=== PATIENT | male | born 1965 | race Caucasian/White ===

== ENCOUNTER 2020-06-17 07:57 | Outpatient (REF) | payer BC, SELFPAY | END 2020-06-17 07:58 | disposition home or self-care (01) | LOC: HO.LAB 07:57 | PROVIDERS: Visit Provider Internal Medicine | DX: Z20.828 Contact with and (suspected) exposure to other viral communicable diseases (principal) | CPT/HCPCS: C9803; U0003 ==

== ENCOUNTER 2020-08-07 08:52 | Outpatient (REF) | payer BC, SELFPAY ==
[2020-08-07 10:24] LABS: Hematocrit 49.1 % (42-52); Hemoglobin 16.2 g/dl (14.0-18.0); Mean Corpuscular Hemoglobin 29.7 pg (27.0-33.0); Mean Corpuscular Volume 90.1 fL (80-98); Mean Platelet Volume 10.7 fL (9.4-12.4); Platelet Count 189 X10*3/uL (160-400); Red Blood Count 5.45 X10*6/uL (4.60-5.80); Red Cell Distribution Width 11.9 % (11.0-16.0)
[2020-08-07 10:33] LABS: Estimated Average Glucose 140 mg/dL; Hemoglobin A1c % 6.5 %
[2020-08-07 10:45] LABS: Alanine Aminotransferase 81 U/L (0-40); Albumin Level 4.3 g/dL (3.5-5.0); Alkaline Phosphatase 63 U/L (39-117); Anion Gap 14 (12-20); Aspartate Amino Transferase 42 U/L (5-37); Bilirubin Total 0.5 mg/dL (0.0-1.0); Blood Urea Nitrogen 15 mg/dL (9-16); Calcium 8.9 mg/dL (8.4-10.2); Carbon Dioxide 25 mmol/L (22-29); Chloride 105 mmol/L (96-108); Cholesterol 132 mg/dL; Estimated Glomerular Filt Rate > 60; Glucose Fasting 101 mg/dL (60-99); HDL Cholesterol 31 mg/dL; LDL Cholesterol Calculated 66 mg/dl; Potassium 4.6 mmol/l (3.3-5.1); Sodium 139 mmol/L (135-145); Total Protein 6.9 g/dL (6.5-8.0); Triglycerides 176 mg/dL
[2020-08-07 10:53] LABS: Creatinine Urine 170.41 mg/dL; Microalbum/Creatinine Ratio Ur 2.9 ug/mg cr
[2020-08-07 11:20] LABS: TSH reflex Free T4 1.29 mIU/mL (0.32-4.0)
[2020-08-07 11:51] LABS: Prostate Specific Antigen Scr 0.59 ng/mL (<0.05-4.0)
== END 2020-08-07 08:53 | disposition home or self-care (01) ==
LOC: HO.LAB 08:52
PROVIDERS: PCP Internal Medicine; Visit Provider Internal Medicine
DX: I25.10 Atherosclerotic heart disease of native coronary artery without angina pectoris (principal); E11.9 Type 2 diabetes mellitus without complications; E78.5 Hyperlipidemia, unspecified; I10 Essential (primary) hypertension
CPT/HCPCS: 36415; 80053; 80061; 82043; 83036; 84153; 84443; 85027

== ENCOUNTER 2020-11-29 09:25 | Outpatient (REF) | payer BC, SELFPAY ==
[2020-11-29 11:48] LABS: Glucose Urine UA NEG (NEG); Leukocyte Esterase Urine NEG (NEG); Nitrite Urine NEG (NEG); PH 5.5 (5.0-8.0); Specific Gravity - Urine >= 1.030 (1.005-1.025); Urine Blood NEG (NEG); Urine Ketones NEG (NEG); Urine Protein NEG (NEG-TRACE)
[2020-11-29 11:49] LABS: Appearance Urine CLEAR; Color Urine YELLOW
[2020-11-29 11:58] LABS: RBC Urine 0 /HPF (0); Squamous Epithelial Cell Urine TRACE /LPF; WBC Urine 0 /HPF (0-4)
[2020-11-29 12:02] LABS: Alanine Aminotransferase 47 U/L (0-40); Albumin Level 4.4 g/dL (3.5-5.0); Alkaline Phosphatase 61 U/L (39-117); Anion Gap 16 (12-20); Aspartate Amino Transferase 30 U/L (5-37); Bilirubin Total 0.7 mg/dL (0.0-1.0); Blood Urea Nitrogen 18 mg/dL (9-16); Calcium 9.4 mg/dL (8.4-10.2); Carbon Dioxide 22 mmol/L (22-29); Chloride 107 mmol/L (96-108); Cholesterol 127 mg/dL; Estimated Glomerular Filt Rate > 60; Glucose Fasting 98 mg/dL (60-99); HDL Cholesterol 29 mg/dL; LDL Cholesterol Calculated 59 mg/dl; Lipase 15 U/L (8-78); Potassium 4.5 mmol/L (3.3-5.1); Sodium 140 mmol/L (135-145); Total Protein 6.9 g/dL (6.5-8.0); Triglycerides 199 mg/dL
[2020-11-29 12:26] LABS: Prostate Specific Antigen Scr 0.45 ng/mL (<0.05-4.0)
[2020-11-29 12:33] LABS: Estimated Average Glucose 134 mg/dL; Hemoglobin A1c % 6.3 %
[2020-11-29 12:34] LABS: Microalbum/Creatinine Ratio Ur 2.8 ug/mg cr
== END 2020-11-29 09:26 | disposition home or self-care (01) ==
LOC: HO.HMGCLDS 09:25
PROVIDERS: PCP Internal Medicine; Visit Provider Internal Medicine
DX: I10 Essential (primary) hypertension (principal); E11.9 Type 2 diabetes mellitus without complications; E78.5 Hyperlipidemia, unspecified; I25.10 Atherosclerotic heart disease of native coronary artery without angina pectoris; R10.9 Unspecified abdominal pain; Z12.5 Encounter for screening for malignant neoplasm of prostate
CPT/HCPCS: 36415; 80053; 80061; 81001; 82043; 83036; 83690; 84153

== ENCOUNTER 2020-12-06 12:54 | Outpatient (REF) | payer BC, SELFPAY ==
--- NOTE | ~2020-12-06 | CT_ITS ---
EXAMINATION: CT CHEST SCREENING CLINICAL INFORMATION: Nicotine dependence, cigarettes. COMPARISON: CT chest 09/22/2019. TECHNIQUE: Multidetector volumetric CT imaging of the chest is performed without contrast using low dose technique. Additional 2D coronal and sagittal reformatted images and axial 3D maximum intensity projection (MIP) images are generated on the CT workstation. This CT examination was performed using dose optimization techniques as appropriate, variously including the following: *Automated exposure control *Adjustment of mA and/or kV according to patient size (this includes techniques or standardized protocols for targeted exams where dose is matched to indication/reason for exam; i.e. extremities or head) *Use of iterative reconstruction technique DLP: 72 mGy-cm FINDINGS: LUNGS: The lungs are well expanded and clear of acute pneumonic consolidation. There is a 1 mm calcification in the right upper lobe (image 113/6), 1 mm noncalcified nodule in the right middle lobe (axial image 33/4). No additional lung nodules are seen. No focal atelectasis or ground-glass density is seen. MEDIASTINUM: The thyroid lobes are symmetrical and normal. The central trachea and the bronchi are widely patent. No abnormal-sized mediastinal or hilar lymph nodes are seen. There are coronary artery calcifications present. There is no pericardial effusion. Heart size and the great vessels are normal caliber. PLEURA: There is no pleural effusion. No pleural mass or thickening. AXILLAE: There are shotty bilateral axillary lymph nodes. UPPER ABDOMEN: Visualized liver, spleen, pancreas and bilateral adrenal glands are unremarkable. OSSEOUS STRUCTURES: There is moderate ventral spondylosis in the mid and lower dorsal spine. No lytic or sclerotic process is seen. CT/CT lung screening IMPRESSION: Punctate 1 mm calcified and noncalcified nodules in the right upper lobe and right middle lobe, respectively, retrospectively unchanged. They are insignificant. ASSESSMENT: Lung-RADS category 2: Benign RECOMMENDATION: Low-dose annual CT chest.
== END 2020-12-06 12:55 | disposition home or self-care (01) ==
LOC: HO.CT 12:54
PROVIDERS: PCP Internal Medicine; Visit Provider Surgery
DX: Z12.2 Encounter for screening for malignant neoplasm of respiratory organs (principal); F17.210 Nicotine dependence, cigarettes, uncomplicated
CPT/HCPCS: 71271

== ENCOUNTER 2020-12-14 08:20 | Outpatient (REF) | payer BC, SELFPAY ==
--- NOTE | ~2020-12-14 | CT_ITS ---
EXAMINATION: CT ABDOMEN WITH CONTRAST CLINICAL INFORMATION: Abdominal pain. COMPARISON: None TECHNIQUE: Contiguous axial thin section helical images of the abdomen were performed following the administration of oral contrast and 85 mL of Omnipaque 350 intravenous contrast. The data set was reformatted in the coronal and sagittal planes and reviewed on an independent workstation. This CT examination was performed using dose optimization techniques as appropriate, variously including the following: *Automated exposure control *Adjustment of mA and/or kV according to patient size (this includes techniques or standardized protocols for targeted exams where dose is matched to indication/reason for exam; i.e. extremities or head) *Use of iterative reconstruction technique DLP: 276 mGy-cm FINDINGS: LUNG BASES: Both lung bases are well expanded and clear. The heart size is normal. LIVER, GALLBLADDER, AND BILIARY TREE: The liver liver is normal size and contour. There is diffuse attenuation of liver without focal lesion. There is no intrahepatic ductal dilatation. PANCREAS: The pancreas is homogeneous in density and appears unremarkable. SPLEEN: The spleen is unremarkable. ADRENAL GLANDS AND KIDNEYS: Bilateral adrenal glands are unremarkable. Both kidneys are normal size, shape and position. No radiopaque renal calculi or hydronephrosis seen. BOWEL LOOPS: Scattered stool and gas seen throughout the colon without any distention. The small bowel loops are normal caliber. Appendix is not visualized images. There is no free air or free fluid. LYMPH NODES: Small shotty lymph nodes are seen in the retroperitoneum. VASCULAR: Unremarkable. BONES: No lytic or sclerotic process seen. CT/CT abdomen w con IMPRESSION: Diffuse fatty infiltration of liver without focal lesion. Mild constipation. No obstruction.
[2020-12-14] MEDS: iohexoL 350 MG/ML 100 ML INFUS..BTL IV (09:51)
[2020-12-14] MEDS: Barium Sulfate Oral (Vanilla) 450 ML ORAL.SUSP PO (09:54)
== END 2020-12-14 08:21 | disposition home or self-care (01) ==
LOC: HO.CT 08:20
PROVIDERS: PCP Internal Medicine; Visit Provider Internal Medicine
DX: R10.9 Unspecified abdominal pain (principal); K85.90 Acute pancreatitis without necrosis or infection, unspecified
CPT/HCPCS: 74160; Q9967

== ENCOUNTER 2022-02-18 06:39 | Outpatient (REF) | payer BC, SELFPAY ==
[2022-02-18 11:35] LABS: Estimated Average Glucose 131 mg/dL; Hemoglobin A1c % 6.2 %
[2022-02-18 11:52] LABS: Alanine Aminotransferase 46 U/L (0-40); Albumin Level 4.2 g/dL (3.5-5.0); Alkaline Phosphatase 78 U/L (39-117); Anion Gap 13 (12-20); Aspartate Amino Transferase 27 U/L (5-37); Bilirubin Total 0.4 mg/dL (0.0-1.0); Blood Urea Nitrogen 16 mg/dL (9-16); Calcium 8.5 mg/dL (8.4-10.2); Carbon Dioxide 24 mmol/L (22-29); Chloride 106 mmol/L (96-108); Cholesterol 257 mg/dL; Estimated Glomerular Filt Rate > 60; Glucose Fasting 107 mg/dL (60-99); HDL Cholesterol 34 mg/dL; LDL Cholesterol Calculated 171 mg/dl; Potassium 4.5 mmol/L (3.3-5.1); Sodium 138 mmol/L (135-145); Total Protein 6.8 g/dL (6.5-8.0); Triglycerides 263 mg/dL
[2022-02-18 11:55] LABS: TSH reflex Free T4 2.47 uIU/mL (0.32-4.0)
[2022-02-18 12:19] LABS: Creatinine Urine 149.45 mg/dL; Microalbumin Urine < 5.0 mg/L
== END 2022-02-18 06:40 | disposition home or self-care (01) ==
LOC: HO.HMGCLDS 06:39
PROVIDERS: Visit Provider Internal Medicine
DX: I25.10 Atherosclerotic heart disease of native coronary artery without angina pectoris (principal); I10 Essential (primary) hypertension; E78.5 Hyperlipidemia, unspecified; E11.9 Type 2 diabetes mellitus without complications
CPT/HCPCS: 36415; 80053; 80061; 82043; 83036; 84443

== ENCOUNTER 2022-09-13 08:02 | Outpatient (REF) | payer BC, SELFPAY ==
[2022-09-13 11:51] LABS: Basophils Percent Auto 0.6 % (0-2); Eosinophils Absolute Auto 0.3 X10*3/uL (0.0-0.4); Eosinophils Percent Auto 4.1 % (0-4); Hematocrit 47.3 % (42.0-52.0); Hemoglobin 15.5 g/dl (14.0-18.0); Imm Gran Abs Auto 0.01 X10*3/uL (0.00-0.03); Imm Gran Pct Auto 0.2 % (0.0-0.4); Lymphocytes Absolute Auto 2.8 X10*3/uL (1.2-4.9); Lymphocytes Percent Auto 42.5 % (20-40); MANUAL DIFF FLAG SCAN; Mean Corpuscular HGB Conc 32.8 g/dl (31.0-36.0); Mean Corpuscular Hemoglobin 29.6 pg (27.0-33.0); Mean Corpuscular Volume 90.4 fL (80.0-98.0); Mean Platelet Volume 11.5 fL (9.4-12.4); Monocytes Absolute Auto 0.6 X10*3/uL (0.1-1.2); Monocytes Percent Auto 8.4 % (2-11); Neutrophils Absolute Auto 2.9 x10*3/uL (2.0-8.3); Neutrophils Percent Auto 44.2 % (45-73); PLT CLUMP 1; Red Blood Count 5.23 X10*6/uL (4.60-5.80); Red Cell Distribution Width 12.5 % (11.0-16.0); SCAN SMEAR FLAG 1
[2022-09-13 11:52] LABS: Platelet Count 139 X10*3/uL (160-400); White Blood Count 6.6 X10*3/uL (4.8-10.8)
[2022-09-13 12:00] LABS: Estimated Average Glucose 154 mg/dL
[2022-09-13 12:15] LABS: SLIDE REVIEW VERIFIED
[2022-09-13 12:23] LABS: Creatinine Urine 186.26 mg/dL; Microalbum/Creatinine Ratio Ur 3.2 ug/mg cr
[2022-09-13 12:53] LABS: Alanine Aminotransferase 54 U/L (0-40); Albumin Level 3.9 g/dL (3.5-5.0); Alkaline Phosphatase 76 U/L (39-117); Anion Gap 16 (12-20); Aspartate Amino Transferase 34 U/L (5-37); Bilirubin Total 0.8 mg/dL (0.0-1.0); Blood Urea Nitrogen 16 mg/dL (9-16); Calcium 8.9 mg/dL (8.4-10.2); Carbon Dioxide 20 mmol/L (22-29); Chloride 108 mmol/L (96-108); Cholesterol 239 mg/dL; Estimated Glomerular Filt Rate > 60; Glucose Fasting 108 mg/dL (60-99); HDL Cholesterol 31 mg/dL; LDL Cholesterol Calculated 165 mg/dl; Potassium 4.8 mmol/L (3.3-5.1); Sodium 139 mmol/L (135-145); Total Protein 6.8 g/dL (6.5-8.0); Triglycerides 216 mg/dL
== END 2022-09-13 08:03 | disposition home or self-care (01) ==
LOC: HO.HMGCLDS 08:02
PROVIDERS: PCP Internal Medicine; Visit Provider Internal Medicine
DX: E78.5 Hyperlipidemia, unspecified (principal); I25.10 Atherosclerotic heart disease of native coronary artery without angina pectoris; E11.9 Type 2 diabetes mellitus without complications; I10 Essential (primary) hypertension
CPT/HCPCS: 36415; 80053; 80061; 82043; 83036; 85025

== ENCOUNTER 2024-10-09 07:23 | Outpatient (REF) | payer BC, SELFPAY ==
--- OUTSIDE RECORDS SUMMARY | 2024-10-09 07:26 | XMS_ITS | Encounter Summary ---
Author Organization [employer] Address [address] [facility] 7 [place] [address] Care Team Providers Care Communications Representative Name Role Phone Kenn Schaffer MD Primary Care Provider [phone] Encounter Details Date Type Department Care Team (Late st Contact Info) Description 01/31/[address] [phone] Kenn Schaffer MD [address] [place] [phone] Social History Tobacco Use Types Packs/Day Years Used Date Smoking Tobacco: Former Cigarettes Q uit: 2022 Smokeless Tobacco: Never Alcohol Answer Date Recorded How often do you have a drink containing alcohol ? 0 02/04/2024 How many drinks containing a lcohol do you have on a typical day when you are drinking? 0 02/04/2024 How often do you have six or more drinks on one occasion? 0 02/04/2024 Housing Stability Answer Date Recorded What is your housing situation today? I have jean-paul rebollar 09/17/[address] you li ve. Do you have problems with any of the following? None of the above 09/17/2023 Food Insecurity Answer Date Recorded Within the past 12 months, y ou worried that your food would run out before you got money to buy more: Never True 09/17/2023 Within the past 12 months,th e food you bought just didn't last and you didn't have enough money to get more: Never True Transportation Answer Date Recorded In the past 12 months, has l ack of transportation kept you from medical appts, meetings, work or from getting things needed for daily living? No 09/17/2023 Intimate Partner Violence Answer Date R ecorded Within the last year, have y ou been afraid of your partner or ex-partner? 2 02/04/2024 Within the last year, have y ou been humiliated or emotionally abused in other ways by your partner or ex-partner? 2 Within the last year, have y ou been kicked, hit, slapped, or otherwise physically hurt by your partner or ex-partner? 2 02/04/2024 Within the last year, have y ou been raped or forced to have any kind of sexual activity by your partner or ex-partner? 2 02/04/2024 Utilities Answer Date Recorded In the past 12 months, has t he electric, gas, oil or water company threatened to shut off services in your home? No 09/17/2023 Depression Answer Date Recorded Patient Health Questionnaire-2 Score 0 09/17/2023 Sex and Gender Information Value Date Recorded Sex Assigned at Male 08/06/2023 10:53 AM EST Legal Sex Male 10:51 AM EST Gender Identity Male 09/17/2023 10:26 AM EST Sexual Orientation Don't know 09/17/2023 10 :26 AM EST documented as of this encounter Miscellaneous Notes * Telephone Encounter - Logan Temple - 01/31/2024 9:32 AM EDT Patient's daughter informs her father was supposed to have his A1C and cholesterol checked before his appointment on 02/03 but there aren't any orders for labs in his mychart. She's requesting we orderthose labs so he can have them done before the appointment. Her call back number is [phone] documented in this encounter Plan of Treatment Upcoming Encounters Date Type Department Care Team (Late st Contact Info) Description 10/11/2024 9:20 AM EDT Office Visit [facility] [address] [place] [phone] Kenn Schaffer MD [address] [place] [phone] documented as of this encounter Visit Diagnoses Not on filedocumented in this encounter Care Teams Communications Representative Relationship Specialty Start Date End Date Kenn Schaffer MD [address] [place] [phone] PCP - General Internal Medicine 09/25/23 documented as of this encounter
--- OUTSIDE RECORDS SUMMARY | 2024-10-09 07:26 | XMS_ITS | Encounter Summary ---
Author Organization [facility] Address [address] [place] [address] Care Team Providers Care Cheese Sprayer Name Role Phone Unknown Primary Care Provider [phone] Encounter Details Date Type Department Care Team (Late st Contact Info) Description 07/17/2023 4:19 PM EST Hospital Encounter [facility] [address] [place] [phone] Harjinder Galvin MD [address] [place] [address] Social History Tobacco Use Types Packs/Day Years Used Date Smoking Tobacco: Never Assessed Sex and Gender Information Value Date Recorded Sex Assigned at Not on file Gender Identity Not on file Sexual Orientation [...] IMPRESSION: Impression: No acute pulmonary disease. Daniel [facility] ORDERABLES documented in this encounter Visit Diagnoses Not on filedocumented in this encounter Care Teams Cheese Sprayer Relationship Specialty Start Date End Date Unknown Unknow Provider Address PCP - General 08/04/22 10/01/23 documented as of this encounter
--- OUTSIDE RECORDS SUMMARY | 2024-10-09 07:26 | XMS_ITS | Patient Health Record ---
Author Organization [facility] Address [address] [place] [address] Care Team Providers Care Prop Drawer Name Role Phone Elise Hidalgo MD Primary Care Provider Camilo Sears [phone] Allergies Allergen (clinical drug ingredient) Drug/Non Drug Allergy documented on EMR Reaction Allergy Type Onset Date Status Penicillin Unknown Drug Allergy Active bee stings (uncoded) Unknown Allergy Active Reason For Referral No Information Medications Medication SIG (Take, Route, Frequency, Duration) Notes Start Date End Date Status Aspir-81 81 MG 1 tablet Orally Once a day 07/21/2014 Unknown Lipitor 80 MG 1 tablet Orally Once a day 07/21/2014 Unknown Effient 5 MG as directed Orally Active Metoprolol Succinate ER 25 MG 1 tablet Orally Once a day 07/21/2014 Unknown Lisinopril 2.5 MG 1 tablet Orally Once a day 07/21/2014 Unknown Immunizations Vaccine Route Administration Date Status Comme nts Influenza Unknown 05/09/2020 Administered Problems Problem Type SNOMED Code ICD Code Onset Dates Problem Status W/U Status Risk Notes Problem [id number] RUQ abdominal pain (R10.11) Active confirmed Plan Of Treatment Future Test Test Name Order Date UPPER GI ENDOSCOPY 07/21/2014 COLONOSCOPY 07/21/2014 Insurance Providers Payer Name Payer Address Payer Phone Subscriber Number Group Number Insured Name Patient Relationship to Insured Coverage Start Date Coverage End Date [facility] [address] [place], [place] [id number] HALEY Self - patient is the insured Medical (General) History Medical History History ICD Code Denies CVA,Lung disease,renal disease Hypertension CAD--[place] 2004--[address], and [place] in 2010--neg cath.--sees Dr. Pedroza; 2 stents placed in 2020. Hyperlipidemia Positive H.pylori serology i n 07/2014--CT scan of the abdomen in July 2014 describes some possible thickening of the left colon wall, but this was not definitive--there was some diverticulosis, but no diverticulitis Negative colonoscopy in 2014 EGD in 2014--small HH, + H. pylori, no e sophagitis nor Velez's esophagus, Diet-controlled DM Surgical History Surgery Date(Month/Year)
--- OUTSIDE RECORDS SUMMARY | 2024-10-09 07:26 | XMS_ITS | Encounter Summary ---
Author Organization [facility] Address [id number] [place] [phone] Care Team Providers Care Administrative Assistant Front Desk Name Role Phone Elise Hidalgo MD Primary Care Provider [phone] Encounter Details Date Type Department Care Team (Late st Contact Info) Description 05/12/2024 4:25 PM EDT Hospital Encounter TH HISTORIC ENCOUNTERS EASTERN CONVERSION ONLY Gavino Moreau MD [address] [place] [address] Social History Tobacco Use Types Packs/Day Years Used Date Smoking Tobacco: Every Day Smokeless Tobacco: Never Alcohol Use Standard Drinks/Week [...] 4:54 PM Encounter Date: 05/12/2024 Status: Signed Circle Shear Operator: Gavino Moreau MD (Physician) Cardiology Attending Follow up Outpatient Note- Gavino Moreau M.D. [facility] Patient Name:Stephen Etienne Patient :1965 Referring MD:Elise Hidalgo MD Chief Complaint: CAD HPI: The patient is a 59 y.o. male with a history of smoking, ALEXANDER, diabetes, hypertension, hyperlipidemia and CAD status post DC and PCI (2015, 2019) who presents for [...] SNOMED CT(R) ? Coronary artery disease involving apache coronary artery of apache heart without angina pectoris CORONARY ARTERIOSCLEROSIS ? Essential hypertension ESSENTIAL HYPERTENSION ? Mixed hyperlipidemia MIXED HYPERLIPIDEMIA ? Old DC (myocardial infarction) OLD MYOCARDIAL INFARCTION ? ALEXANDER [...] HEART CATHETERIZATION; Surgeon: Alfredo Josue DO; Location: [facility] CARDIAC WEB CONTENT WRITER; Service: Cardiology; Laterality: N/A; ? CARDIAC CATHETERIZATION N/A 07/14/2020 Procedure: CARDIAC CATHETERIZATION; Surgeon: Alfredo Josue DO; Location: [facility] CARDIAC WEB CONTENT WRITER;Service: Cardiology; Laterality: N/A; ? CARDIAC CATHETERIZATION N/A 07/14/2020 Procedure: CORONARY ANGIOGRAPHY; Surgeon: Alfredo Josue DO; Location: [facility] CARDIAC WEB CONTENT WRITER; Service: Cardiology; Laterality: N/A; ? COLONOSCOPY Social [...] changes. Assessment and Plan: 1) CAD s/p DC and PCI (2015, 2019): He had 2 [...] for this visit: Coronary artery disease involving apache coronary artery of apache heart without angina pectoris - ECG 12 lead Essential hypertension Mixed hyperlipidemia Smoking Type 2 diabetes mellitus without complication, without long-term current use of insulin (HCC) Return in about 1 year (around 05/12/2025), or if symptoms worsen or fail to improve. Gavino Moreau MD, [facility], [facility] Cardiologists, [facility] 05/12/2024 10:30 AM documented in this encounter Plan of Treatment Upcoming Encounters Date Type Department Care Team (Late st Contact Info) Description 05/18/2025 4:30 PM EDT Office Visit [facility] - [place] [address] [place] [phone] Gavino Moreau MD [address] [facility] [address] [place] [address] documented as of this encounter Procedures Procedure Name Priority Date/Time Associated Diagnosis Comments ECG 05/12/2024 documented in this encounter Results * ECG (05/12/2024) us Provider Onbase CV HISTORICAL CONV PROCEDURES Final Result documented in this encounter Visit Diagnoses Not on filedocumented in this encounter Care Teams Administrative Assistant Front Desk Relationship Specialty Start Date End Date Elise Hidalgo MD PCP - General 06/07/20 documented as of this encounter
--- OUTSIDE RECORDS SUMMARY | 2024-10-09 07:26 | XMS_ITS | Encounter Summary ---
Author Organization [employer] Address [address] [facility] 7 [address] [place] [address] Care Team Providers Care Utilization Management Manager Name Role Phone Kenn Schaffer MD Primary Care Provider + [phone] Encounter Details Date Type Department Care Team (Late st Contact Info) Description 10/21/[address] [phone] Kenn Schaffer MD [address] [place] [address] Social History Tobacco Use Types Packs/Day Years Used Date Smoking Tobacco: Former Cigarettes Q uit: 2022 Smokeless Tobacco: Never Housing Stability Answer Date Recorded What is [...] things needed for daily living? No 09/17/2023 Utilities Answer Date Recorded In the past [...] encounter Miscellaneous Notes * Telephone Encounter - Latrice Hill - 10/22/2023 8:36 AM EDT Working on PA with Provider. * Telephone Encounter - Logan Temple - 10/21/2023 3:46 PM EDT Pharmacy informs they need a prior auth on the alirocumab (Praluent) 75 MG/ML injection documented in this encounter Plan of Treatment Upcoming Encounters Date Type Department Care Team (Late st Contact Info) Description 10/11/2024 9:20 AM EDT Office Visit [facility] [address] [place] [phone] Kenn Schaffer MD [address] [place] [address] documented as of this encounter Visit Diagnoses Not on filedocumented in this encounter Care Teams Utilization Management Manager Relationship Specialty Start Date End Date Kenn Schaffer MD [address] [place] [id number] PCP - General Internal Medicine 09/25/23 documented as of this encounter
--- OUTSIDE RECORDS SUMMARY | 2024-10-09 07:26 | XMS_ITS | Encounter Summary ---
Author Organization [employer] Address [address] [facility] 7t [place] [address] Care Team Providers Care Billet Heater Name Role Phone Kenn Schaffer MD Primary Care Provider + [phone] Encounter Details Date Type Department Care Team (Late st Contact Info) Description 01/28/2024 Orders Only [place] [facility] [address] [place], [place] [id number] Provider, Not In System Social History Tobacco Use Types Packs/Day Years Used Date Smoking Tobacco: Former Cigarettes Q uit: 2022 Smokeless Tobacco: Never Housing Stability Answer Date Recorded What is your housing situation today? I have jean-paul keturah 09/17/[address] you li [...] AM EST documented as of this encounter Plan of Treatment Upcoming Encounters Date Type Department Care Team (Late st Contact Info) Description 10/11/2024 9:20 AM EDT Office Visit [facility] [address] [place] [phone] Kenn Schaffer MD [address] [place] [address] documented as of this encounter Procedures Procedure Name Priority Date/Time Associated Diagnosis Comments COLONOSCOPY Routine 08/29/2014 3:13 PM EST documented in this encounter Results * Hm Colonoscopy (08/29/2014 3:13 PM EST) us Not In System Provider HEALTH MAINTENANCE Edited Result - Final documented in this encounter Visit Diagnoses Not on filedocumented in this encounter Care Teams Billet Heater Relationship Specialty Start Date End Date Kenn Schaffer MD [address] [place] [id number] PCP - General Internal Medicine 09/25/23 documented as of this encounter
--- OUTSIDE RECORDS SUMMARY | 2024-10-09 07:26 | XMS_ITS | Clinical Summary ---
Author Organization [facility] Address [address] [place] [phone] Care Team Providers Care Wire Products Inspector Name Role Phone Elise Hidalgo MD Primary Care Provider [phone] Surgical History Surgery Date Site/Laterality Comments COLONOSCOPY PROCEDURE:COLONOSCOPY CARDIAC CATHETERIZATION PROCEDURE:CARDIAC CATHETERIZATION CARDIAC CATHETERIZATION 07/14/2020 N/A PROCEDURE:CARDIAC CATHETERIZATION;COMMENT:Procedure: LEFT HEART CATHETERIZATION; Surgeon: Alfredo Josue DO; Location: [facility]; Service: Cardiology; Laterality: N/A; CARDIAC CATHETERIZATION 07/14/2020 N/A PROCEDURE:CARDIAC CATHETERIZATION;COMMENT:Procedure: CARDIAC CATHETERIZATION; Surgeon: Alfredo Josue DO; Location: [facility]; Service: Cardiology; Laterality: N/A; CARDIAC CATHETERIZATION 07/14/2020 N/A PROCEDURE:CARDIAC CATHETERIZATION;COMMENT:Procedure: CORONARY ANGIOGRAPHY; Surgeon: Alfredo Josue DO; Location: [facility]; Service: Cardiology; Laterality: N/A; Medical History Medical History Date Comments Coronary artery disease DX:Coron andres artery disease Hyperlipidemia DX:Hyperlipidemi a Myocardial infarction ([facility]/HCC) DX:Myocardial infarction (HCC) Hypertension DX:Hypertension Sleep apnea DX:Sleep apnea Kidney stone DX:Kidney stone Family History Medical History Relation Name Comments Hypertension Brother Kidney disease Father Heart attack Mother Heart disease Mother Hypertension Mother Hypertension Sister Relation Name Status Comments Brother Father Mother Sister Social History Tobacco Use Types Packs/Day Years Used Date Smoking Tobacco: Every Day Smokeless Tobacco: Never Alcohol Use Standard Drinks/Week Comments No 0 (1 standard drink = 0.6 oz pur e alcohol) Sex and Gender Information Value Date Recorded Sex Assigned at Not on file Legal Sex Male 7:48 AM EST Gender Identity Not on file Sexual Orientation Not on file Obstetrics History Last Filed Vital Signs Vital Sign Reading [...] Mass Index 37.76 05/12/2024 4:33 PM EDT Plan of Treatment Upcoming Encounters Date Type Department Care Team ([facility] st Contact Info) Description 05/18/2025 4:30 PM EDT Office Visit [facility] [place] [facility] [place] [address] [facility] [address] [place] [address] Gavino Moreau MD 19 [facility] 35 [place], [place] [id number] Health Maintenance Due Date Last Done Comments Diabetes: Annual GFR (Glomer ular Filtration Rate) 1965 Diabetes: Annual Foot Exam 01/26/1974 Diabetes: Annual Retina Eye Exam 01/26/1974 Pneumococcal Vaccine: 50+ Ye ars (1 of 2 - PCV) 01/26/1983 Pneumococcal Vaccine: Pediat rics (0 to 5 Years) and At-Risk Patients (6 to 64 Years) (1 of 2 - PCV) 01/26/1983 Zoster Vaccines (1 of 2) 01/26/2014 DTaP,Tdap,and Td Vaccines (2 - Td or Tdap) 01/23/2021 01/23/2011 Cholesterol Screening (Lipid Panel) 07/07/2022 Colorectal Cancer Screening: Colonoscopy 07/07/2022 Depression Screening 07/07/2022 HIV Screening 07/07/2022 Hepatitis C Screening 07/07/2022 Social Influencers of Health Screening 07/07/2022 Hypertension/CHF/CAD Annual BMP Blood Test 07/13/2022 COVID-19 Vaccine (1 - 2023-2 5 season) 2024 Influenza Vaccine (#1) 2024 Diabetes: Annual Urine Albumin-Creatinine Ratio (uACR) 05/19/2024 Diabetes: Blood Sugar Contro l Test (HGBA1C) 05/19/2024 RSV Immunization Patients 60 + Years Old (1 - 1-dose 75+ series) 01/26/2039 HIB Vaccines Aged Out No longer eligi ble based on patient's age to complete this topic HPV Vaccines Aged Out No longer eligi ble based on patient's age to complete this topic Hepatitis A Vaccines Aged Out No long er eligible based on patient's age to complete this topic Hepatitis B Vaccines Aged Out No long er eligible based on patient's age to complete this topic IPV Vaccines Aged Out No longer eligi ble based on patient's age to complete this topic MMR Vaccines Aged Out No longer eligi ble based on patient's age to complete this topic Meningococcal ACWY Vaccine Aged Out N o longer eligible based on patient's age to complete this topic Meningococcal B Vacine Aged Out No lo nger eligible based on patient's age to complete this topic RSV Immunization Patients Un floyd 20 months Aged Out No longer eligible b ased on patient's age to complete this topic Varicella Vaccines Aged Out No longer eligible based on patient's age to complete this topic Medical Devices Implanted Type Area Sugar Grinder Device Identifier Shelf Expiration Date Model / Serial / Lot Stent Resolute [place] 18mm 2.75mm Rapdx Zotarolimus Eluting - [id number] Implanted: 020 (Quantity not on file) [employer] [id number] X / / Stent Resolute [place] 22mm 3.5mm Rapdx Zotarolimus Eluting - [id number] Implanted: 020 (Quantity not on file) [employer] V[employer] [id number] X / / Care Teams Wire Products Inspector Relationship Specialty Start Date End Date Elise Hidalgo MD PCP - General 06/07/20
--- OUTSIDE RECORDS SUMMARY | 2024-10-09 07:26 | XMS_ITS | Encounter Summary ---
Author Organization [employer] Address [address] [facility] 7 [place] [address] Care Team Providers Care Processing Technician Name Role Phone Kenn Schaffer MD Primary Care Provider + [phone] Encounter Details Date Type Department Care Team (Late st Contact Info) Description 10/16/[address] [phone] Kenn Schaffer MD [address] [place] [phone] Social History Tobacco Use Types Packs/Day Years [...] * Telephone Encounter - Logan Temple - 10/16/2023 9:07 AM EDT Pharmacy informs they will need a prior auth on the alirocumab (Praluent) 75 MG/ML injection documented in this encounter Plan of Treatment Upcoming Encounters Date Type Department Care Team (Late st Contact Info) Description 10/11/2024 9:20 AM EDT Office [facility] [place] [place] [facility] [address] [place] [phone] Kenn Schaffer MD [address] [place] [address] documented as of this encounter Visit Diagnoses Not on filedocumented in this encounter Care Teams Processing Technician Relationship Specialty Start Date End Date Kenn Schaffer MD [address] [place] [id number] PCP - General Internal Medicine 09/25/23 documented as of this encounter
--- OUTSIDE RECORDS SUMMARY | 2024-10-09 07:26 | XMS_ITS | Clinical Summary ---
Author Organization [facility] Address [address] [place] [address] Care Team Providers Care Telephone Service Adviser Name Role Phone Elise Hidalgo MD Primary Care Provider [phone] Allergies Active Allergy Reactions Criticality Noted Date Comments Bee Sting Anaphylaxis High 06/07/2020 Penicillins Hives 06/07/2020 Medications Medication Sig Dispensed Refills Start Date End Date Status lisinopril (PRINIVIL,ZESTRIL) tablet 20 mg Take 1 tablet (20 mg total) by mouth daily. 0 Active metoprolol succinate (TOPROL-XL) 24 hr tablet 25 mg Take 1 tablet (25 mg total) by mouth daily. 0 Active rosuvastatin (CRESTOR) tablet 40 mg Take 1 tablet (40 mg total) by mouth daily. 0 Active ezetimibe (ZETIA) tablet 10 mg Take 1 tablet (10 mg total) by mouth daily. 0 Active aspirin 81 MG EC tablet Take 1 tablet (81 mg total) by mouth daily. 0 Active metFORMIN (GLUCOPHAGE) tablet 500 mg Take 1 tablet (500 mg total) by mouth 2 (two) times a day with meals. 0 Active Active Problems Problem Noted Date Diagnosed Date Type 2 diabetes mellitus without complication Coronary artery disease invo lving [place] coronary artery of [place] heart without angina pectoris 06/07/2020 Essential hypertension 06/07/2020 Mixed hyperlipidemia 06/07/2020 Old [place] (myocardial infarction) 06/07/2020 ALEXANDER (obstructive sleep apnea) 06/07/2020 Family History Medical History Relation Name Comments Hypertension Brother Kidney disease Father Heart attack Mother Heart disease Mother Hypertension Mother Hypertension Sister Relation Name Status Comments Brother Father Mother Sister Social History Tobacco Use Types Packs/Day Years Used Date Smoking Tobacco: Every Day Cigarettes Passive Smoke Exposure: Current Smokeless Tobacco: Never Tobacco Cessation:Ready to Q uit: Not Asked; Counseling Given: Not Answered Alcohol Use Standard Drinks/Week Comments No 0 (1 standard drink = 0.6 oz pur e alcohol) Sex and Gender Information Value Date Recorded Sex Assigned at Male 07/03/2020 3:00 PM EST Gender Identity Not on file Sexual Orientation Not on file Job Start Date Occupation Industry Not on file Not on file Not on file Last Filed Vital Signs Vital Sign Reading Time Taken Comments Blood Pressure 118/70 05/12/2024 4:33 PM EDT Pulse 75 05/12/2024 4:33 PM EDT Temperature 36.3 ??C (97.4 ??F) 07/26/2021 9:12 AM ES T Respiratory Rate 17 07/14/2020 3:45 PM EST Oxygen Saturation 96% 05/12/2024 4:33 PM EDT Inhaled Oxygen Concentration - - Weight 99.8 kg (220 lb) 05/12/2024 4:33 PM EDT Height 162.6 cm (5' 4 ) 05/12/2024 4:33 PM EDT Body Mass Index 37.76 05/12/2024 4:33 PM EDT Plan of Treatment Health Maintenance Due Date Last Done Comments Hepatitis C Screening 1965 COVID-19 Vaccine (#1) 1965 Depression Screening 1976 BMI Counseling 01/26/1982 Preventative Health Evaluation 01/26/1982 Tobacco Cessation Counseling 01/26/1982 Colon Cancer Screening (Colonoscopy) 01/26/2009 Shingrix-Zoster Vaccine (1 o f 2) 01/26/2014 DTap / Tdap / Td (2 - Td or Tdap) 01/23/2021 01/23/2011 Influenza Vaccine (#1) 2024 05/09/2020 RSV Adult > 60+ Yrs or (1 - 1-dose 75+ series) 01/26/2039 Pneumococcal Vaccine Completed 09/17/2023, 02/03/2016 Hepatitis B Vaccines Aged Out No long er eligible based on patient's age to complete this topic RSV Ped < 20 months Aged Out No longe r eligible based on patient's age to complete this topic Medical Devices Implanted Type Area Farmworker Field Crop Device Identifier Shelf Expiration Date Model / Serial / Lot Stent Resolute [place] 18mm 2.75mm Rapdx Zotarolimus Eluting - [id number] - [id number] Implanted:12/11/2 020 [place] [facility] [place] [facility] [place]Quantity not on file) [employer] - VASCULAR [id number] X / / Stent Resolute [place] 22mm 3.5mm Rapdx Zotarolimus Eluting - [id number] - [id number] Implanted: 020 [place] [facility] [place] [facility] [place]Quantity not on file) [employer] - VASCULAR [id number] X / / Advance Directives For more information, please contact: [phone] Latest Code Status on File Code Status Date Activated Date Inactivated Comments Full Code 07/14/2020 12:22 PM 07/14/2020 11:28 PM T his code status was ascertained in the following way: discussion with patient . Care Teams Telephone Service Adviser Relationship Specialty Start Date End Date Elise Hidalgo MD [address] [place] [address] PCP - General Sampler Ovens 06/07/20
--- OUTSIDE RECORDS SUMMARY | 2024-10-09 07:26 | XMS_ITS | Clinical Summary ---
Author Organization [employer] Address [address] [facility] 7t [place] [address] Care Team Providers Care Cigar Packer And Grader Name Role Phone Kenn Schaffer MD Primary Care Provider Allergies Active Allergy Reactions Criticality Noted Date Comments Bee Venom Anaphylaxis High 09/17/2023 Penicillins Swelling,Hives,Unknown Medium 06/07/2020 Medications EPINEPHrine (Epipen) 0.3 MG/0.3ML injection syringe Inject 0.3 mL (0.3 mg) as directed 1 (one) time for 1 dose. use as directed for allergic reaction and then call 911 0.3 mL 4 Active alirocumab (Praluent) 75 MG/ML injectionIndicat ions:Hypercholes teremia Inject 1 mL (75 mg) under the skin every 14 (fourteen) days. 2.24 mL 3 4 10/15/19 25 Active nitroglycerin (Nitrostat) 0.[address] 0.4 mg under the tongue. 6 Active albuterol 108 (90 Base) MCG/ACT inhaler Inhale 2 puffs every 6 (six) hours if needed. 3 Active famotidine (Pepcid) 40 MG tablet Take 40 mg by mouth. 6 Active ASPIRIN 81 MG chewable tablet Rx 81 mg po every day; 1 tablet 4 Active atorvastatin (Lipitor) 80 MG tablet Take 1 tablet (80 mg) by mouth in the morning. 90 tablet 3 4 Active ezetimibe (Zetia) 10 MG tablet Take 1 tablet (10 mg) by mouth in the morning. 90 tablet 3 4 Active metFORMIN XR (Glucophage-XR) 750 MG 24 hr tablet Take 1 tablet (750 mg) by mouth 2 times daily. 180 tablet 3 4 Active evolocumab (Repatha) 140 MG/ML injection Inject 1 mL (140 mg) under the skin every 14 (fourteen) days. 2.1 mL 3 4 Active metoprolol succinate XL (Toprol-XL) 25 MG 24 hr tablet TAKE 1 TABLET(25 MG) BY MOUTH IN THE MORNING 90 tablet 3 4 Active lisinopril 40 MG tabletIndication s:Hypertension, unspecified type Take 1 tablet (40 mg) by mouth Once per day. 30 tablet 11 4 02/04/20 25 Active amLODIPine (Norvasc) 2.5 MG tabletIndication s:Hypertension, unspecified type Take 2 tablets (5 mg) by mouth Once per day. 60 tablet 11 4 05/10/20 25 Active Immunizations Name Administration Dates Next Due Pneumococcal Conjugate PCV 09/17/2023 Social History Tobacco Use Types Packs/Day Years Used Date Smoking Tobacco: Former Cigarettes Q uit: 2022 Smokeless Tobacco: Never Tobacco Cessation:Counseling Given: Not Answered Alcohol Answer Date Recorded How often do [...] Don't know 09/17/2023 10 :26 AM EST Last Filed Vital Signs Vital Sign Reading Time Taken Comments Blood Pressure 123/83 05/10/2024 4:28 PM EDT Pulse 82 05/10/2024 4:28 PM EDT Temperature 36.6 ??C (97.8 ??F) 05/10/2024 4:28 PM ED T Respiratory Rate - - Oxygen Saturation 95% 05/10/2024 4:28 PM EDT Inhaled Oxygen Concentration - - Weight 101 kg (223 lb) 05/10/2024 4:28 PM EDT Height 162.6 cm (5' 4 ) 09/17/2023 2:06 PM EST Body Mass Index 38.28 09/17/2023 2:06 PM EST Plan of Treatment Upcoming Encounters Date Type Department Care Team (Late st Contact Info) Description 10/11/2024 9:20 AM EDT Office Visit [facility] [address] [place] [phone] Kenn Schaffer MD [address] [place] [id number] Health Maintenance Due Date Last Done Comments CT Colonography 1964 FIT DNA/Cologuard 1964 FIT 1964 FOBT 1965 HIV Screening 1964 Sigmoidoscopy 1964 Diabetes: Foot Exam 01/26/1974 Eye Exam 01/26/1974 Hepatitis C Screening 01/26/1982 Zoster Vaccines (1 of 2) 01/26/2014 RSV Patients and Patients Aged 60 years or older (1 - Risk 60-74 years 1-dose series) 2024 COVID-19 Vaccine ( - 2023-2 5 season) 2024 07/13/2021, 12/05/2020, 11/14/2020 Influenza Vaccine (#1) 2024 05/09/2020 Diabetes: Hemoglobin A1C 04/12/2024 10/11/2023 Colonoscopy 08/29/2024 08/29/2014 Colorectal Cancer Screening 08/29/2024 Depression Screening 09/17/2024 09/17/2023, 09/17/2023 SDOH Screening 09/17/2024 09/17/2023 Diabetes: Urine Protein Screening 01/30/2025 01/31/2024, 10/11/2023 Lipid Panel 01/30/2025 01/31/2024, 10/11/2023 DTaP/Tdap/Td Vaccines (3 - T d or Tdap) 02/01/2025 02/01/2015, 01/23/2011 Alcohol/Substance Use Screening 02/03/2025 02/04/2024 Tobacco Screening 05/10/2025 05/10/2024 Pneumococcal Vaccine: 50+ Years Completed 09/17/2023, 02/03/2016 HIB Vaccines Aged Out No longer eligi [...] patient's age to complete this topic Meningococcal Vaccine Aged Out No ras bonnie eligible based on patient's age to complete this topic RSV under 20 months Aged Out No longe r eligible based on patient's age to complete this topic Rotavirus Vaccines Aged Out No longer eligible based on patient's age to complete this topic Procedures Procedure Name Priority Date/Time Associated Diagnosis Comments ALBUMIN, RANDOM URINE W/CREATININE Routine 01/31/2024 9:35 AM EDT Diabetes mellitus type 2 in obese LIPID PANEL WITH REFLEX TO DIRECT LDL Routine 01/31/2024 9:35 AM EDT Diabetes mellitus type 2 in obese HEMOGLOBIN A1C Routine 10/11/2023 7:52 AM EST Diabetes mellitus type 2 in obese (CMS/HCC) HM COLONOSCOPY Routine 08/29/2014 3:13 PM EST from Last 3 Months or Most Recently Relevant to Health Maintenance Results * (ABNORMAL) Lipid Panel with Reflex to Direct LDL (01/31/2024 9:35 AM EDT) Cholesterol, Total 126 <200 mg/dL [employer] HDL Cholesterol 33(L) > OR = 40 mg/dL [employer] Triglycerides 106 <150 mg/dL [employer] LDL Cholesterol 74 mg/dL [facility] Comment: Reference range: <100 Desirable range <100 mg/dL for primary prevention; ?? <70 mg/dL for patients with CHD or diabetic patients with > or = 2 CHD risk factors. LDL-C is now calculated using the Brittnee calculation, which is a validated novel method providing better accuracy than the Friedewald equation in the estimation of LDL-C. Dayo BINGHAM et al. SUSANA. 2013;310(19): 8345-3110 (http://education.Mixpo.[employer]/faq/MPJ718) Chol/HDLC Ratio 3.8 <5.0 (calc) [employer] Non-HDL Cholesterol 93 <130 mg/dL [employer] Comment: For patients with diabetes plus 1 major ASCVD risk factor, treating to a non-HDL-C goal of <100 mg/dL (LDL-C of <70 mg/dL) is considered a therapeutic option. Blood 01/31/2024 9:35 AM EDT 01/31/2024 9:37 AM EDT Narrative [facility] - 02/04/2024 5:43 PM EDT FASTING:YES FASTING: YES Kenn Schaffer MD LAB BLOOD ORDERABLES Final R esult Performing Organization Address City/[facility] Co de Phone Number [facility] [address], [facility] [place] [address] [address] [place] [employer] [address] [place] [address] * Albumin, Random Urine W/Creatinine (01/31/2024 9:35 AM EDT) Pathologist [facility] Creatinine, Random Urine 126 20 - 320 mg/dL [address] [place] [employer] Albumin, Urine <0.2 See Note: mg/dL [address] [place] [employer] Comment: Reference Range: Reference Range Not established Albumin/Creatinin e Ratio, Random Urine NOTE <30 mg/g creat [address] [place] [employer] Comment: NOTE: The urine albumin value is less than 0.2 mg/dL therefore we are unable to calculate excretion and/or creatinine ratio. The ADA defines abnormalities in albumin excretion as follows: Albuminuria Category ?Result (mg/g creatinine) Normal to Mildly increased ?? <30 Moderately increased ? 30-299 Severely increased ? > OR = 300 The ADA recommends that at least two of three specimens collected within a 3-6 month period be abnormal before considering a patient to be within a diagnostic category. Urine (Urine, Random) 01/31/2024 9:35 AM EDT 01/31/2024 9:37 AM EDT Narrative [facility] - 02/04/2024 5:43 PM EDT FASTING:YES FASTING: YES Kenn Schaffer MD LAB URINE ORDERABLES Final R esult Performing Organization Address [facility]/ZIP Co de Phone Number [facility] [address], [facility] [place] [address] [address] [place] [employer] [address] [place] [address] * (ABNORMAL) Hemoglobin A1c (10/11/2023 7:52 AM EST) Hemoglobin A1c 6.9(H) <5.7 % of total Hgb [address] [place] [employer] Comment: For someone without known diabetes, a hemoglobin A1c value of 6.5% or greater indicates that they may have diabetes and this should be confirmed with a follow-up test. For someone with known diabetes, a value <7% indicates that their diabetes is well controlled and a value greater than or equal to 7% indicates suboptimal control. A1c targets should be individualized based on duration of diabetes, age, comorbid conditions, and other considerations. Currently, no consensus exists regarding use of hemoglobin A1c for diagnosis of diabetes for children. ? This test was performed on the Kiel michelle c503 platform. Effective 10/06/23, a change in test platforms from the [employer] to the Kiel michelle c503 may have shifted HbA1c results compared to historical results. Based on laboratory validation testing conducted at [facility], the Kiel platform relative to the Zayas platform had an average increase in HbA1c value of <0.3%. This difference is within accepted variability established by the National Glycohemoglobin Standardization Program. Note that not all individuals will have had a shift in their results and direct comparisons between historical and current results for testing conducted on different platforms is not recommended. Blood Venous blood specimen / Unknown 10/11/2023 7:52 AM EST 10/11/2023 7:52 AM EST Narrative [facility] - 10/13/2023 6:02 PM EDT FASTING:YES FASTING: YES us Kenn Schaffer MD LAB BLOOD ORDERABLES Final R esult [facility] [address] [facility], [facility], [place] [address] [address] [place] [employer] [address] [place] [address] * Hm Colonoscopy (08/29/2014 3:13 PM EST) us Not In System Provider HEALTH MAINTENANCE Edited Result - Final from Last 3 Months or Most Recently Relevant to Health Maintenance Insurance [facility] PPO Care Teams Cigar Packer And Grader Relationship Specialty Start Date End Date Kenn Schaffer MD [address] [place] [address] PCP - General Internal Medicine 09/25/23
--- OUTSIDE RECORDS SUMMARY | 2024-10-09 07:26 | XMS_ITS ---
Author Name [facility] Organization Unknown History of Medication Use Medication Directions Dispensed Refills Start Date End Date Stat us lisinopril (PRINIVIL,ZeSTRIL) 20 MG tablet Take 20 mg by mouth daily. active azithromycin (ZITHROMAX) 250 MG tablet Take 2 tablets by mouth on day 1 followed by 1 tablet by mouth daily on days 2 through 5. 07/17/2023 10/07/2023 active metoPROLOL SUCCINATE (TOPROL-XL) 25 MG 24 hr tablet Take 25 mg by mouth daily. active metFORMIN (GLUCOPHAGE) 500 MG tablet Take 500 mg by mouth 2 (two) times a day with meals. active Problems Problem Status Onset Date Problem Type Date of Resoluti on Source Bronchitis active [facility] Acute cough active EncounterDiagnosisAct [facility] Flu active EncounterDiagnosisAct [facility] Wheeze active EncounterDiagnosisAct [facility]
--- OUTSIDE RECORDS SUMMARY | 2024-10-09 07:26 | XMS_ITS | Clinical Summary ---
Author Organization [facility] Address [address] [place] [address] Care Team Providers Care Boiler House Operator Name Role Phone Kenn Schaffer MD Primary Care Provider [phone] Allergies Active Allergy Reactions Criticality Noted Date Comments Bee Venom Anaphylaxis High 06/07/2020 Penicillins Swelling,Hives,Unkno wn/Patient and Family Unable to Define Medium 06/07/2020 Medications Medication Sig Dispensed Refills Start Date End Date Status ezetimibe (ZeTIA) 10 MG tablet Take 10 mg by mouth daily. Active rosuvastatin (CRESTOR) 40 MG tablet Take 40 mg by mouth daily. Active metoPROLOL SUCCINATE (TOPROL-XL) 25 MG 24 hr tablet Take 25 mg by mouth daily. Active lisinopril (PRINIVIL,ZeSTRIL) 20 MG tablet Take 20 mg by mouth daily. Active aspirin enteric coated (ECOTRIN LOW STRENGTH) 81 MG EC tablet Take 81 mg by mouth daily. Active metFORMIN (GLUCOPHAGE) 500 MG tablet Take 500 mg by mouth 2 (two) times a day with meals. Active predniSONE (DELTASONE) 20 MG tabletIndications:Br onchitis Take 2 tablets (40 mg total) by mouth daily. 10 tablet 07/17/2023 Active albuterol (PROVENTIL HFA; VENTOLIN HFA) 108 (90 Base) MCG/ACT inhalerIndications:B ronchitis Inhale 2 puffs 4 times daily (every 6 hours) as needed for wheezing. 1 each 07/17/2023 Active benzonatate (TESSALON) 200 MG capsuleIndications:A cute cough Take 1 capsule (200 mg total) by mouth 3 (three) times a day as needed for cough. 45 capsule 10/02/2023 Active albuterol (PROVENTIL HFA; VENTOLIN HFA) 108 (90 Base) MCG/ACT inhalerIndications:Jose L bolañose Inhale 2 puffs 4 times daily (every 6 hours) as needed for wheezing. 1 each 10/02/2023 Active Active Problems No known active problems Social History Tobacco Use Types Packs/Day Years Used Date Smoking Tobacco: Never Assessed Sex and Gender Information Value Date Recorded Sex Assigned at Not on file Gender Identity Not on file Sexual Orientation Not on file Last Filed Vital Signs Vital Sign Reading Time Taken Comments Blood Pressure 130/91 10/02/2023 12:13 PM EST Pulse 90 10/02/2023 12:13 PM EST Temperature 37.8 ??C (100.1 ??F) 10/02/2023 12:13 PM EST Respiratory Rate - - Oxygen Saturation 96% 10/02/2023 12:13 PM EST Inhaled Oxygen Concentration - - Weight 99.8 kg (220 lb) 10/02/2023 12:13 PM EST Height 162.6 cm (5' 4 ) 10/02/2023 12:13 PM EST Body Mass Index 37.76 10/02/2023 12:13 PM EST Plan of Treatment Health Maintenance Due Date Last Done Comments Hepatitis C Virus Screening 1965 HIV Screening 01/26/1977 DTaP/Tdap/Td Vaccines (1 - Tdap) 01/26/1983 Colonoscopy 01/26/2009 Pneumococcal Vaccines 50+ (1 of 1 - PCV) 01/26/2014 Zoster (Shingles) Vaccine (1 of 2) 01/26/2014 RSV Vaccine 60 years and old er and Patients (1 - Risk 60-74 years 1-dose series) 2024 Influenza Vaccine 03/04/2024 05/09/2020 COVID-19 Vaccine (1 - 2023-2 5 season) 2024 Hepatitis B Vaccines Aged Out No long er eligible based on patient's age to complete this topic Pneumococcal Vaccine: Pediat azalea (0-5 Years) and At-Risk Patients (6 to 49 Years) Aged Out No longer eligible b ased on patient's age to complete this topic Care Teams Boiler House Operator Relationship Specialty Start Date End Date Kenn Schaffer MD [address] [facility] [place] [address] PCP - General Internal Medicine 10/02/23
[2024-10-09 08:40] LABS: Estimated Average Glucose 140 mg/dL; Hemoglobin A1c % 6.5 % (<6.0)
[2024-10-09 09:02] LABS: Alanine Aminotransferase 53 U/L (0-40); Albumin Level 4.4 g/dL (3.5-5.0); Alkaline Phosphatase 76 U/L (39-117); Anion Gap 12 (12-20); Aspartate Amino Transferase 33 U/L (5-37); Bilirubin Direct 0.2 mg/dL (0.0-0.5); Bilirubin Total 0.6 mg/dL (0.0-1.0); Blood Urea Nitrogen 16 mg/dL (9-16); Calcium 9.1 mg/dL (8.4-10.2); Carbon Dioxide 23 mmol/L (22-29); Chloride 108 mmol/L (96-108); Cholesterol 173 mg/dL (<200); Estimated Glomerular Filt Rate > 60; Glucose Random 121 mg/dL (60-115); HDL Cholesterol 29 mg/dL (>40); Iron 97 mcg/dL (45-160); LDL Cholesterol Calculated 119 mg/dL (<100); Percent Iron Saturation 34 % (15-50); Potassium 4.3 mmol/L (3.3-5.1); Sodium 139 mmol/L (135-145); Total Iron Binding Capacity 288 mcg/dL (228-428); Total Protein 7.4 g/dL (6.5-8.0); Triglycerides 127 mg/dL (<150); Unsaturated Iron Binding 191 ug/dL
[2024-10-09 11:03] LABS: Reflex LDLD? No
== END 2024-10-09 07:24 | disposition home or self-care (01) ==
LOC: HO.LAB 07:23
PROVIDERS: PCP Internal Medicine; Visit Provider Internal Medicine
DX: E11.69 Type 2 diabetes mellitus with other specified complication (principal)
CPT/HCPCS: 36415; 80048; 80061; 80076; 83036; 83540

== ENCOUNTER 2025-06-21 15:59 | Outpatient (REF) | payer BC, SELFPAY ==
--- OUTSIDE RECORDS SUMMARY | 2023-07-17 16:19 | XMS_ITS | Encounter Summary ---
Author Organization [facility] Address [address] [place] [address] Care Team Providers Care Sociology Teacher Name Role Phone Unknown Primary Care Provider [phone] Encounter Details Date Type Department Care Team (Late st Contact Info) Description 07/17/2023 4:19 PM EST Hospital Encounter [facility] [address] [place] [id number] Harjinder Galvin MD [address] [place] [address] Social History Tobacco Use Types Packs/Day Years Used Date Smoking Tobacco: Never Assessed Sex and Gender Information Value Date Recorded Sex Assigned at Not on file Legal Sex Male 5:53 PM EST Gender Identity Not on file Sexual Orientation Not on file documented as of this encounter Plan of Treatment Not on file documented as of this encounter Procedures Procedure Name Priority Date/Time Associated Diagnosis Comments XR CHEST 2 VIEWS STAT 07/17/2023 4:29 PM EST Body aches documented in this encounter Results * XR Chest 2 views (07/17/2023 4:29 PM EST) Anatomical Region Laterality Modality Chest Computed Radiogr aphy 07/17/2023 4:31 PM EST Impressions 07/17/2023 4:32 PM EST Impression: No acute pulmonary disease. Narrative 07/17/2023 4:32 PM EST TECHNIQUE : PA & LATERAL Views of the chest are provided. COMPARISON: None FINDINGS: Cardiac silhouette: Normal. Mediastinum: Normal. Lungs: No Consolidation. Pleural surfaces: No pleural effusion. Pneumothorax: None. Procedure Note Tani Munguia MD - 07/17/2023 TECHNIQUE : PA & LATERAL Views of the chest are provided. COMPARISON: None FINDINGS: Cardiac silhouette: Normal. Mediastinum: Normal. Lungs: No Consolidation. Pleural surfaces: No pleural effusion. Pneumothorax: None. IMPRESSION: Impression: No acute pulmonary disease. Daniel [facility] ORDERAB LES Final Result documented in this encounter Visit Diagnoses Not on filedocumented in this encounter Care Teams Sociology Teacher Relationship Specialty Start Date End Date Unknown Unknow Provider Address PCP - General 08/04/22 10/01/23 documented as of this encounter
--- OUTSIDE RECORDS SUMMARY | 2024-05-12 15:25 | XMS_ITS | Encounter Summary ---
Author Organization [facility] Address [id number] [place] [phone] Care Team Providers Care Planer Chain Offbearer Name Role Phone Elise Hidalgo MD Primary Care Provider Encounter Details Date Type Department Care Team ([facility] st Contact Info) Description 05/12/2024 4:25 PM EDT Hospital Encounter TH HISTORIC ENCOUNTERS EASTERN CONVERSION ONLY Gavino Moreau MD [address] [place] [address] Social History Tobacco Use Types Packs/Day Years Used Date Smoking Tobacco: Every Day Passive Smoke Exposure: Current Smokeless Tobacco: Never Alcohol Use Standard Drinks/Week Comments No 0 (1 standard drink = 0.6 oz pur e alcohol) Sex and Gender Information Value Date Recorded Sex Assigned at Not on file Legal Sex Male 7:48 AM EST Gender Identity Not on file Sexual Orientation Not on file documented as of this encounter Last Filed Vital Signs Vital Sign Reading Time Taken Comments Blood Pressure 118/70 05/12/2024 4:33 PM EDT Pulse 75 05/12/2024 4:33 PM EDT Temperature - - Respiratory Rate - - Oxygen Saturation - - Inhaled Oxygen Concentration - - Weight 99.8 kg (220 lb) 05/12/2024 4:33 PM EDT Height 162.6 cm (5' 4 ) 05/12/2024 4:33 PM EDT Body Mass Index 37.76 05/12/2024 4:33 PM EDT documented in this encounter Progress Notes * Gavino Moreau MD - 05/12/2024 4:30 PM EDT Images from the original note were not included. Progress Notes by Gavino Moreau MD at 05/12/2024 4:30 PM Author: Gavino Moreau MD Service: -- Author Type: Physician Filed: 05/12/2024 4:54 PM Encounter Date: 05/12/2024 Status: Signed Operator/Assistant Foreman: Gavino Moreau MD (Physician) Cardiology Attending Follow up Outpatient Note- Gavino Moreau M.D. [facility] Patient Name:Stephen Etienne Patient :1965 Referring MD:Elise Hidalgo MD Chief Complaint: CAD HPI: The patient is a 59 y.o. male with a history of smoking, ALEXANDER, diabetes, hypertension, hyperlipidemia and CAD status post [place] and PCI (2015, 2019) who presents for follow up evaluation. After our initial consultation in 2019 he went for nuclear stress test which showed an area of ischemia. This prompted a cardiac cath and he was found to have significant RCA stenosis and received 2 drug-eluting stents to his RCA. He was also found to have moderate LAD disease. He returns today for follow-up with his daughter. He reports he is overall doing well. No chest pain or shortness of breath. He does not have any formal exercise but does work out in the yard and continues to work about 10 hours/day. He feels tired but no other cardiac symptoms. He quit smoking forabout 2 months but recently restarted. No dizziness or syncope. No swelling or edema. At one point he had stopped his medications but is now taking everything as prescribed. Patient Active Problem List Diagnosis SNOMED CT(R) ? Coronary artery disease involving [place] coronary artery of [place] heart without angina pectoris CORONARY ARTERIOSCLEROSIS ? Essential hypertension ESSENTIAL HYPERTENSION ? Mixed hyperlipidemia MIXED HYPERLIPIDEMIA ? [place] (myocardial infarction) OLD MYOCARDIAL INFARCTION ? ALEXANDER (obstructive sleep apnea) OBSTRUCTIVE SLEEP APNEA SYNDROME ? Type 2 diabetes mellitus without complication (HCC) TYPE 2 DIABETES MELLITUS WITHOUT COMPLICATION Past Medical History: Diagnosis Date ? Coronary artery disease ? Hyperlipidemia ? Hypertension ? Kidney stone ? Myocardial infarction (HCC) ? Sleep apnea Past Surgical History: Procedure Laterality Date ? CARDIAC CATHETERIZATION ? CARDIAC CATHETERIZATION N/A 07/14/2020 Procedure: LEFT HEART CATHETERIZATION; Surgeon: Alfredo Josue DO; Location: [facility] CARDIAC GENERAL REPAIR MECHANIC; Service: Cardiology; Laterality: N/A; ? CARDIAC CATHETERIZATION N/A 07/14/2020 Procedure: CARDIAC CATHETERIZATION; Surgeon: Alfredo Josue DO; Location: [facility] CARDIAC GENERAL REPAIR [facility]CHANIC;Service: Cardiology; Laterality: N/A; ? CARDIAC CATHETERIZATION N/A 07/14/2020 Procedure: CORONARY ANGIOGRAPHY; Surgeon: Alfredo Josue DO; Location: [facility] CARDIAC GENERAL REPAIR MECHANIC; Service: Cardiology; Laterality: N/A; ? COLONOSCOPY Social History Socioeconomic History ? Marital status: Spouse name: Not on file ? Number of children: Not on file ? Years of education: Not on file ? Highest education level: Not on file Occupational History ? Not on file Tobacco Use ? Smoking status: Every Day Types: Cigarettes Passive exposure: Current ? Smokeless tobacco: Never Substance and Sexual Activity ? Alcohol use: No ? Drug use: No ? Sexual activity: Not on file Other Topics Concern ? Not on file Social History Narrative ? Not on file Social Determinants of Health Financial Resource Strain: Not on file Food Insecurity: Not on file Transportation Needs: Not on file Social Connections: Not on file Housing Stability: Not on file Family History Problem Relation Age of Onset ? Heart attack Mother ? Heart disease Mother ? Hypertension Mother ? Kidney disease Father ? Hypertension Sister ? Hypertension Brother Current Outpatient Medications Medication Sig Dispense Refill ? aspirin 81 MG EC tablet Take 1 tablet (81 mg total) by mouth daily. ? ezetimibe (ZETIA) tablet 10 mg Take 1 tablet (10 mg total) by mouth daily. ? lisinopril (PRINIVIL,ZESTRIL) tablet 20 mg Take 1 tablet (20 mg total) by mouth daily. ? metFORMIN (GLUCOPHAGE) tablet 500 mg Take 1 tablet (500 mg total) by mouth 2 (two) times a day with meals. ? metoprolol succinate (TOPROL-XL) 24 hr tablet 25 mg Take 1 tablet (25 mg total) by mouth daily. ? rosuvastatin (CRESTOR) tablet 40 mg Take 1 tablet (40 mg total) by mouth daily. No current facility-administered medications for this visit. Allergies Allergen Reactions ? Bee Sting Anaphylaxis ? Penicillins Hives Review of Systems: Complete 12 point review of systems was completed and is negative as per HPI. Specifically reviewedissues include -no diarrhea, no weight gain, no rash, no neck pain, no headache, no fevers, no cough, no claudication, no bleeding, and no vision changes. Please see complete ROS scanned into the chart. Physical Exam: Vital signs: Vitals: 05/12/24 1633 BP: 118/70 Pulse: 75 SpO2: 96% Weight: 99.8 kg (220 lb) Height: 5' 4 (1.626 m) Body mass index is 37.76 kg/m??. General: Awake, alert, appears comfortable Head: Normocephalic and atraumatic. Neck: Supple. No carotid bruits. No JVD Cardiac: Regular rhythm. Normal heart sounds. No murmurs. Respiratory: Normal effort. Clear lungs. No crackles or wheezes. Abdomen: Soft. Non-tender. Non-distended Skin/Vascular: Warm dry skin. Normal peripheral pulses. Extremities: No LE edema. Neurologic: No focal abnormalities Labs: Lab Results Component Value Date WBC 6.5 07/11/2020 RBC 5.44 07/11/2020 HEMATOCRIT 48.7 07/11/2020 HEMOGLOBIN 16.4 07/11/2020 MCV 89.5 07/11/2020 MCH 30.1 07/11/2020 MCHC 33.7 07/11/2020 RDW 12.2 07/11/2020 PLTCOUNT 214 07/11/2020 MPV 10.2 07/11/2020 NEUTROPHILS 56.9 07/11/2020 LYMPHOCYTES 33.2 07/11/2020 MONOCYTES 7.7 07/11/2020 EOSINOPHILS 1.7 07/11/2020 BASOPHILS 0.5 07/11/2020 NEUTROPHABSO 3,699 07/11/2020 LYMPHOCYABSO 2,158 07/11/2020 MONOCYTABSOL 501 07/11/2020 EOSINOPHIABS 111 07/11/2020 BASOPHILSABS 33 07/11/2020 Lab Results Component Value Date BUN 19 07/11/2020 CREATININE 1.08 07/11/2020 NA 138 07/11/2020 K 4.1 07/11/2020 CL 105 07/11/2020 CO2 24 07/11/2020 CALCIUM 9.1 07/11/2020 No results found for: HGBA1C No results found for: CHOL , HDL , LDLCHOL , TRIGLYCERIDE , CHOLHDLCRAT Data/Imaging: No results found. SPECT MPI 06/28/2020: LVEF visually 55%. Moderate reversible apical defect. LHC 07/14/20: Severe atherosclerosis involving proximal, mid and distal RCA Nonobstructive disease seen in the LAD territory Small territory posterior circumflex with borderline disease Successful percutaneous intervention of RCA under IVUS guidance using drug-eluting stents ECG: Sinus rhythm. LAFB. Borderline IVCD (QRS [address] ms[address]-T wave changes. Assessment and Plan: 1) CAD s/p [place] and PCI (2015, 2019): He had 2 drug-eluting stents placed to his RCA in July 2020. He remains fairly active with no concerning anginal symptoms. Continue medical therapy with aspirin, statin and beta-soy. Would have low threshold for repeat ischemic assessment should he develop any angina. 2) hypertension: Blood pressure appears well-controlled. Continue present therapy 3) hyperlipidemia: Continue high dose, high potency statin. Continue Zetia. Last LDL 74. Goal LDL <70 4) smoking: Cessation strongly encouraged. Quitting strategies reviewed. 5) diabetes: Last A1c 6.9%. I have stressed the importance of glucose control in the setting of heart disease. Follow-up with PCP. The patient was counseled on therapeutic lifestyle changes, including cardiovascular exercise and dietary modification, to promote achieving goal weight, optimal lipid parameters, and increased cardiovascular fitness . Diagnoses and all orders for this visit: Coronary artery disease involving [place] coronary artery of [place] heart without angina pectoris - ECG 12 lead Essential hypertension Mixed hyperlipidemia Smoking Type 2 diabetes mellitus without complication, without long-term current use of insulin (HCC) Return in about 1 year (around 05/12/2025), or if symptoms worsen or fail to improve. Gavino Moreau MD, [facility], [facility], [facility] 05/12/2024 10:30 AM documented in this encounter Plan of Treatment Not on file documented as of this encounter Procedures Procedure Name Priority Date/Time Associated Diagnosis Comments ECG 05/12/2024 documented in this encounter Results * ECG (05/12/2024) us Provider Onbase CV HISTORICAL CONV PROCEDURES Final Result documented in this encounter Visit Diagnoses Not on filedocumented in this encounter Care Teams Planer Chain Offbearer Relationship Specialty Start Date End Date Elise Hidalgo MD PCP - General 06/07/20 documented as of this encounter
--- OUTSIDE RECORDS SUMMARY | 2025-02-07 18:07 | XMS_ITS | Encounter Summary ---
Author Organization [facility] Address [address] [place] [address] Care Team Providers Care Reproductive Surgeon Name Role Phone Kenn Schaffer MD Primary Care Provider [phone] Encounter Details Date Type Department Care Team (Late st Contact Info) Description 02/07/2025 7:07 PM EDT Hospital Encounter [facility] [address] [place] [phone] Social History Tobacco Use Types Packs/Day Years [...] Diagnosis Comments XR CHEST 2 VIEWS STAT 02/07/2025 7:11 PM EDT Acute cough documented in this encounter Results * XR Chest 2 views (02/07/2025 7:11 PM EDT) Anatomical Region Laterality Modality Chest Computed Radiogr aphy 02/07/2025 7:30 PM EDT Impressions 02/07/2025 7:31 PM EDT Impression: No acute pulmonary disease. No change from prior. Narrative 02/07/2025 7:31 PM EDT TECHNIQUE : PA & LATERAL Views of the chest are provided. COMPARISON: Chest x-ray from 07/17/2023 FINDINGS: Cardiac silhouette: Normal. Mediastinum: Normal. Lungs: No Consolidation. Pleural surfaces: No pleural effusion. Pneumothorax: None. Procedure Note Tani Munguia MD - 02/07/2025 TECHNIQUE : PA & LATERAL Views of the chest are provided. COMPARISON: Chest x-ray from 07/17/2023 FINDINGS: Cardiac silhouette: Normal. Mediastinum: Normal. Lungs: No Consolidation. Pleural surfaces: No pleural effusion. Pneumothorax: None. IMPRESSION: Impression: No acute pulmonary disease. No change from prior. us Stevo Ventura II, RON IMG DIAGNOSTIC IMAGING ORDERABLES Final Result documented in this encounter Visit Diagnoses Not on filedocumented in this encounter Care Teams Reproductive Surgeon Relationship Specialty Start Date End Date Kenn Schaffer MD [address] [place] [address] PCP - General Internal Medicine 10/02/23 documented as of this encounter
--- NOTE | ~2025-06-21 | CT_ITS ---
EXAMINATION: CT LUNG SCREENING HISTORY: Z87.891 - Personal history of nicotine dependence TECHNIQUE: Low dose axial images were obtained from the sternal notch to upper abdomen without IV contrast per standard departmental protocol. Sagittal and coronal reformatted images were also obtained and reviewed. One or more of the following techniques was used for dose reduction: Automated exposure control, adjustment of the mA and/or kV according to patient size, use of iterative reconstruction technique. DLP: 72 mGy-cm COMPARISON: Comparison is made with the prior examination dated 12/06/2020. FINDINGS: Lung nodules: There is a 3 mm nodule in the right middle lobe (series 4, image 34). No additional pulmonary nodules are identified. Emphysema: none Coronary Calcification: severe Aortic Arch Calcification: mild Potentially Significant Incidentals : none Additional Chest Findings: There is no pleural or pericardial effusion. No mediastinal or axillary lymphadenopathy is identified. Visualized upper abdomen: The liver demonstrates diffusely decreased attenuation, consistent with steatosis. The visualized portions of the spleen and adrenals have an unremarkable unenhanced appearance. CT/CT lung screening IMPRESSION: No suspicious pulmonary nodules are identified. LUNG-RADS ASSESSMENT: Lung-RADS 2: Benign MANAGEMENT: Continue annual screening with LDCT in 12 months Category S: N/A Electronically signed by: Camilo Aragon MD 06/22/2025 07:31 AM [facility]
--- OUTSIDE RECORDS SUMMARY | 2025-06-22 13:16 | XMS_ITS | Clinical Summary ---
Author Organization [facility] Address [address] [place] [address] Care Team Providers Care Pier Worker Name Role Phone Elise Hidalgo MD Primary Care Provider [phone] Allergies Active Allergy Reactions Criticality Noted Date [...] without complication Coronary artery disease invo lving yocha dehe coronary artery of yocha dehe heart without angina pectoris 06/07/2020 Essential hypertension 06/07/2020 Mixed hyperlipidemia 06/07/2020 Old AR (myocardial infarction) 06/07/2020 ALEXANDER (obstructive sleep apnea) [...] 75 05/12/2024 4:33 PM EDT Temperature 36.3 C (97.4 F) 07/26/2021 9:12 AM EST Respiratory Rate 17 07/14/2020 3:45 PM EST [...] or Tdap) 01/23/2021 01/23/2011 Influenza Vaccine (#1) 2025 05/09/2020 RSV Adult > 60+ Yrs or (1 - 1-dose 75+ series) 01/26/2039 Pneumococcal Vaccine Completed 09/17/2023, 02/03/2016 Hepatitis B Vaccines Aged Out No long er eligible based on patient's age to complete this topic RSV Ped < 20 months Aged Out No longe r eligible based on patient's age to complete this topic Medical Devices Implanted Type Area Surgical Assist Device Identifier Shelf Expiration Date Model / Serial / Lot Stent Resolute Silas 18mm 2.75mm Rapdx Zotarolimus Eluting - [id number] - [id number] Implanted: 020 at [facility] and Med (Quantity not on file) [employer] - VASCULAR [id number] X / / Stent Resolute [place] 22mm 3.5mm Rapdx Zotarolimus Eluting - [id number] - [id number] Implanted: 020 at [facility] and Med (Quantity not on file) [employer] - VASCULAR [id number] X / / Advance Directives For more information, please contact: [phone] Latest Code Status on File Code Status Date Activated Date Inactivated Comments Full Code 07/14/2020 12:22 PM 07/14/2020 11:28 PM T his code status was ascertained in the following way: discussion with patient . Care Teams Pier Worker Relationship Specialty Start Date End Date Elise Hidalgo MD [address] [place] [address] PCP - General Information Lead 06/07/20
--- OUTSIDE RECORDS SUMMARY | 2025-06-22 13:16 | XMS_ITS | Encounter Summary ---
Author Organization [employer] Address [address] [facility] [address] [place] [address] Care Team Providers Care Document Review Specialist Name Role Phone Kenn Schaffer MD Primary Care Provider [phone] Encounter Details Date Type Department Care Team ([facility] Contact Info) Description 01/28/2024 Orders Only [facility] [address] [place] [address] Provider, Not In System Social History Tobacco Use Types Packs/Day Years Used Date Smoking Tobacco: Former Cigarettes Q uit: 2022 Smokeless Tobacco: Never Housing Stability Answer Date Recorded What is your housing situation today? I have jean-paulshannon rebollar 09/17/[address] you [...] Procedure Name Priority Date/Time Associated Diagnosis Comments HM COLONOSCOPY Routine 08/29/2014 3:13 PM EST documented in this encounter Results * Hm Colonoscopy (08/29/2014 3:13 PM EST) Not In System Provider [facility] Edited Result - Final documented in this encounter Visit Diagnoses Not on filedocumented in this encounter Care Teams Document Review Specialist Relationship Specialty Start Date End Date Kenn Schfafer MD [address] [place] [address] PCP - General Internal Medicine 09/25/23 documented as of this encounter
--- OUTSIDE RECORDS SUMMARY | 2025-06-22 13:16 | XMS_ITS | Clinical Summary ---
Author Organization [facility] Address [address] [place] [address] Care Team Providers Care Electric Frying Pan Repairer Name Role Phone Kenn Schaffer MD Primary Care Provider Allergies Active Allergy Reactions Criticality Noted Date Comments Bee Venom Anaphylaxis High 06/07/2020 Penicillins Swelling,Hives,Unkno wn/Patient and Family Unable to Define Medium 06/07/2020 Medications ezetimibe (ZeTIA) 10 MG tablet Take 10 mg by mouth daily. Active rosuvastatin (CRESTOR) 40 MG tablet Take 40 mg by mouth daily. Active metoPROLOL SUCCINATE (TOPROL-XL) 25 MG 24 hr tablet Take 25 mg by mouth daily. Active lisinopril (PRINIVIL,ZeSTR IL) 20 MG tablet Take 20 mg by mouth daily. Active aspirin enteric coated (ECOTRIN LOW STRENGTH) 81 MG EC tablet Take 81 mg by mouth daily. Active metFORMIN (GLUCOPHAGE) 500 MG tablet Take 500 mg by mouth 2 (two) times a day with meals. Active predniSONE (DELTASONE) 20 MG tabletIndicatio ns:Bronchitis Take 2 tablets (40 mg total) by mouth daily. 10 tablet 07/17/2023 Active albuterol (PROVENTIL HFA; VENTOLIN HFA) 108 (90 Base) MCG/ACT inhalerIndicati ons:Bronchitis Inhale 2 puffs 4 times daily (every 6 hours) as needed for wheezing. 1 each 07/17/2023 Active benzonatate (TESSALON) 200 MG capsuleIndicati ons:Acute cough Take 1 capsule (200 mg total) by mouth 3 (three) times a day as needed for cough. 45 capsule 10/02/2023 Active albuterol (PROVENTIL HFA; VENTOLIN HFA) 108 (90 Base) MCG/ACT inhalerIndicati ons:Wheeze Inhale 2 puffs 4 times daily (every 6 hours) as needed for wheezing. 1 each 10/02/2023 Active predniSONE (DELTASONE) 50 MG tabletIndicatio ns:Acute bacterial bronchitis,Whee zing Take 1 tablet (50 mg total) by mouth daily. With food. 5 tablet 02/07/2025 Active proMETHAZINE-de xtromethorphan (proMETHAZINE-D M) 6.25-15 MG/5ML syrupIndication s:Acute cough Take 5 mL by mouth 4 times daily (every 6 hours) as needed for cough. 120 mL 02/07/2025 Active albuterol (PROVENTIL HFA; VENTOLIN HFA) 108 (90 Base) MCG/ACT inhalerIndicati ons:Acute bacterial bronchitis,Whee zing Inhale 1-2 puffs 4 times daily (every 6 hours) as needed for wheezing. 1 each 02/07/2025 Active Active Problems No known active problems Social History Tobacco Use Types Packs/Day Years Used Date Smoking Tobacco: Never Assessed Sex and Gender Information Value Date Recorded Sex Assigned at Not on file Legal Sex Male 5:53 PM EST Gender Identity Not on file Sexual Orientation Not on file Last Filed Vital Signs Vital Sign Reading Time Taken Comments Blood Pressure 149/95 02/07/2025 6:54 PM EDT Pulse 97 02/07/2025 6:54 PM EDT Temperature 37.2 C (99 F) 02/07/2025 6:54 PM EDT Respiratory Rate - - Oxygen Saturation 93% 02/07/2025 6:54 PM EDT Inhaled Oxygen Concentration - - Weight 101 kg (222 lb) 02/07/2025 6:54 PM EDT Height 162.6 cm (5' 4 ) 02/07/2025 6:54 PM EDT Body Mass Index 38.11 02/07/2025 6:54 PM EDT Plan of Treatment Health Maintenance Due Date Last Done Comments Hepatitis C Virus Screening 1965 HIV Screening 01/26/1977 DTaP/Tdap/Td Vaccines (1 - Tdap) 01/26/1983 Colonoscopy 01/26/2009 Pneumococcal Vaccines 50+ (1 of 1 - PCV) 01/26/2014 Zoster (Shingles) Vaccine (1 of 2) 01/26/2014 Influenza Vaccine 03/04/2025 05/09/2020 COVID-19 Vaccine ( - 2023-2 5 season) 2025 RSV Vaccine 50 years and old er and Patients (1 - 1-dose 75+ series) 01/26/2039 Hepatitis B Vaccines Aged Out No long er eligible based on patient's age to complete this topic Insurance [place] [id number] [facility] OUT OF STATE - PPO Care Teams Electric Frying Pan Repairer Relationship Specialty Start Date End Date Kenn Schaffer MD [address] [facility] [place] [id number] PCP - General Internal Medicine 10/02/23
--- OUTSIDE RECORDS SUMMARY | 2025-06-22 13:16 | XMS_ITS | Clinical Summary ---
Author Organization [facility] Address [address] [facility] [address] [place] [id number] Phone Care Team Providers Care Automobile Tester Name Role Phone Elise Hidalgo MD Primary Care Provider [phone] Social History Tobacco Use Types Packs/Day Years Used Date Smoking Tobacco: Never Assessed Education Answer Date Recorded Are you interested in more education? Not on harshad e 10/13/2023 Are you concerned about learning? Not on file 10/13/2023 No 10/13/2023 No 10/13/2023 Digital Access Answer Date Recorded No 10/13/2023 No 10/13/2023 Reliable internet access at home? Not on file 10/13/2023 Device with a working camera? Not on file Sex and Gender Information Value Date Recorded Sex Assigned at Not on file Legal Sex Male 3:22 PM EDT Gender Identity Not on file Sexual Orientation Not on file Plan of Treatment Health Maintenance Due Date Last Done Comments LIPID PANEL 1965 DEPRESSION SCREENING 1976 SMOKING Hx and SMOKELESS TOBACCO SCREENING 01/26/1977 HEPATITIS C SCREENING 01/26/1982 HIV ONE-TIME SCREENING (18-6 5 YEARS) 01/26/1982 COLOGUARD 01/26/2009 COLONOSCOPY 01/26/2009 COLORECTAL CANCER SCREENING 01/26/2009 FIT TEST 01/26/2009 FOBT 01/26/2009 SIGMOIDOSCOPY 01/26/2009 VIRTUAL COLONOSCOPY 01/26/2009 ZOSTER VACCINES (1 of 2) 01/26/2014 Adult Td,Tdap Booster 02/01/2025 02/01/2015 , 01/23/2011 INFLUENZA VACCINE (#1) 2025 COVID-19 VACCINE (2024-2 6 season) 2025 07/13/2021, 12/05/2020, 11/14/2020 RSV VACCINE (1 - 1-dose 75+ series) 01/26/2039 PNEUMOCOCCAL VACCINES (50+ years) Completed 09/17/2023 HEPATITIS A VACCINES Aged Out No long er eligible based on patient's age to complete this topic HIB VACCINES Aged Out No longer eligi ble based on patient's age to complete this topic IPV VACCINES Aged Out No longer eligi ble based on patient's age to complete this topic MENINGOCOCCAL VACCINES (ACWY) Aged Out No longer eligible based on patient's age to complete this topic MENINGOCOCCAL VACCINES (B) Aged Out N o longer eligible based on patient's age to complete this topic Medical Devices Not on file Insurance OUT OF [facility] INDEMNITY [employer] OUT OF [facility] INDEMNITY [employer] OUT OF STATE INDEMNITY [employer] OUT OF STATE INDEMN[place] [address] [address] OUT OF [facility] INDEMNITY [address] [address] OUT OF [facility] INDEMNITY Care Teams Automobile Tester Relationship Specialty Start Date End Date Elise Hidalgo MD [address] [place] [address] PCP - General Internal Medicine 03/08/20 Additional Source Comments The information contained in this document represents components of the legal health record. It is not the complete legal health record.[facility]
--- OUTSIDE RECORDS SUMMARY | 2025-06-22 13:16 | XMS_ITS | Clinical Summary ---
Author Organization [facility] Address [address] [place] [address] Phone Care Team Providers Care Steamfitter Name Role Phone Elise Hidalgo MD Primary Care Provider [phone] Allergies Active Allergy Reactions Criticality Noted Date Comments Bee Venom Protein (Honey Bee) Hives High 03/21/2023 Penicillins Hives,Swelling,Unkno wn Medium 06/26/2013 Other Reaction(s): edema Medications lisinopriL (PRINIVIL,ZESTRI L) 20 mg tablet Take 1 tablet (20 mg total) by mouth 1 (one) time each day. Active metoprolol succinate (TOPROL-XL) 25 mg 24 hr tablet Take 1 tablet (25 mg total) by mouth daily. 07/02/2011 Active rosuvastatin (CRESTOR) 40 mg tablet Take 1 tablet (40 mg total) by mouth 1 (one) time each day. Active ezetimibe (ZETIA) 10 mg tablet Take 1 tablet (10 mg total) by mouth daily. 10/11/2024 Active aspirin 81 mg EC tablet Take 1 tablet (81 mg total) by mouth 1 (one) time each day. Active metFORMIN XR (GLUCOPHAGE-XR) 750 mg 24 hr tablet Take 1 tablet (750 mg total) by mouth 2 times daily. 10/11/2024 Active Active Problems Problem Noted Date Diagnosed Date Coronary artery disease invo lving [place] coronary artery of [place] heart without angina pectoris 05/18/2025 Primary hypertension 05/18/2025 Mixed hyperlipidemia 05/18/2025 Type 2 diabetes mellitus wit hout complication, without long-term current use of insulin ([facility] V24, [facility] V28) 05/18/2025 ALEXANDER (obstructive sleep apnea) 05/18/2025 Encounters Date Type Department Care Team Description 05/18/2025 4:30 PM EDT Office Visit [facility] Cardiology - [address] [address] Gavino Moreau MD Coronary artery disease involving [place] coronary artery of [place] heart without angina pectoris (Primary Dx); Primary hypertension; Mixed hyperlipidemia; Type 2 diabetes mellitus without complication, without long-term current use of insulin ([facility] V24, [facility] V28); ALEXANDER (obstructive sleep apnea) from Last 3 Months Surgical History Surgery Date Site/Laterality Comments COLONOSCOPY PROCEDURE:COLONOSCOPY CARDIAC CATHETERIZATION PROCEDURE:CARDIAC CATHETERIZATION CARDIAC CATHETERIZATION 07/14/2020 N/A PROCEDURE:CARDIAC CATHETERIZATION;COMMENT:Procedure: LEFT HEART CATHETERIZATION; Surgeon: Alfredo Josue DO; Location: [facility]; Service: Cardiology; Laterality: N/A; CARDIAC CATHETERIZATION 07/14/2020 N/A PROCEDURE:CARDIAC CATHETERIZATION;COMMENT:Procedure: CARDIAC CATHETERIZATION; Surgeon: Alfredo Josue DO; Location: [facility]; Service: Cardiology; Laterality: N/A; CARDIAC CATHETERIZATION 07/14/2020 N/A PROCEDURE:CARDIAC CATHETERIZATION;COMMENT:Procedure: CORONARY ANGIOGRAPHY; Surgeon: Alfredo Josue DO; Location: [facility]; Service: Cardiology; Laterality: N/A; Medical History Medical History Date Comments Coronary artery disease DX:Coron andres artery disease Hyperlipidemia DX:Hyperlipidemi a Myocardial infarction ([facility] V24, [facility] V28) DX:Myocardial infarction ([facility]) Hypertension DX:Hypertension Sleep apnea DX:Sleep apnea Kidney [...] Sign Reading Time Taken Comments Blood Pressure 136/82 05/18/2025 4:14 PM EDT Pulse 95 05/18/2025 4:14 PM EDT Temperature - - Respiratory Rate - - Oxygen Saturation 97% 05/18/2025 4:14 PM EDT Inhaled Oxygen Concentration - - Weight 102 kg (225 lb) 05/18/2025 4:14 PM EDT Height 157.5 cm (5' 2 ) 05/18/2025 4:14 PM EDT Body Mass Index 41.15 05/18/2025 4:14 PM EDT Plan of Treatment Health Maintenance Due Date Last Done Comments Colorectal Cancer Screening: Colonoscopy 1965 Diabetes: Annual GFR (Glomerular Filtration Rate) 1965 Diabetes: Annual Foot Exam 01/26/1974 Diabetes: Annual Retina Eye Exam 01/26/1974 RSV Immunization Adult Patients (1 - Risk 50-74 years 1-dose series) 01/26/2014 Zoster Vaccines (1 of 2) 01/26/2014 DTaP,Tdap,and Td Vaccines (2 - Td or Tdap) 01/23/2021 01/23/2011 Cholesterol Screening (Lipid Panel) 07/07/2022 HIV Screening 07/07/2022 Hepatitis C Screening 07/07/2022 Social Influencers of Health Screening 07/07/2022 Hypertension/CHF/CAD Annual BMP Blood Test 07/13/2022 Diabetes: Annual Urine Albumin-Creatinine Ratio (uACR) 05/19/2024 Depression Screening 08/04/2024 COVID-19 Vaccine (1 - 2024-2 6 season) 2025 Influenza Vaccine (#1) 2025 Diabetes: Blood Sugar Contro l Test (HGBA1C) 04/11/2025 10/09/2024 Pneumococcal Vaccine: 50+ Years Completed 09/17/2023, 02/03/2016 [...] age to complete this topic Meningococcal B Vaccine Aged Out No l onger eligible based on patient's age to complete this topic RSV Immunization Patients Under 20 months Aged Out No longer eligible b ased on patient's age to complete this topic Varicella Vaccines Aged Out No longer eligible based on patient's age to complete this topic Medical Devices Implanted Type Area Envelope Folding Machine Operator Device Identifier Shelf Expiration Date Model / Serial / Lot Stent Resolute Silas 18mm 2.75mm Rapdx Zotarolimus Eluting - [id number] Implanted: 020 (Quantity not on file) [employer] [id number] X / / Stent Resolute Silas 22mm 3.5mm Rapdx Zotarolimus Eluting - [id number] Implanted: 020 (Quantity not on file) [employer] [id number] X / / Procedures Procedure Name Priority Date/Time Associated Diagnosis Comments ECG 12-LEAD Routine 05/18/2025 4:34 PM EDT Coronary artery disease involving [place] coronary artery of [place] heart without angina pectoris from Last 3 Months Results * ECG 12 lead (05/18/2025 4:34 PM EDT) Narrative Gavino Moreau MD - 05/18/2025 4:34 PM EDT Sinus rhythm. LAFB. Borderline IVCD (QRS [address] ms[address]-T wave changes. Gavino Moreau MD ECG ORDERABLES Final Result from Last 3 Months Insurance [facility] Care Teams Steamfitter Relationship Specialty Start Date End Date Elise Hidalgo MD PCP - General 06/07/20
--- OUTSIDE RECORDS SUMMARY | 2025-06-22 13:16 | XMS_ITS | Patient Health Record ---
Author Organization [facility] Address [address] [place] [address] Care Team Providers Care Packaging Inspector Name Role Phone Elise Hidalgo MD Primary Care Provider Camilo Sears [phone] Allergies Allergen (clinical drug ingredient) Drug/Non Drug Allergy documented on EMR Reaction Allergy Type Onset Date Status bee stings (uncoded) Unknown Allergy Active Penicillin Unknown Drug Allergy Active Reason For Referral No Information Medications Medication SIG (Take, Route, Frequency, Duration) Notes Start Date End Date Status Aspir-81 81 MG Tablet Delayed Release 1 tablet Orally Once a day 07/21/2014 Unknown Lipitor 80 MG Tablet 1 tablet Orally Onc e a day 07/21/2014 Unknown Effient 5 MG Tablet as directed Orally Active Metoprolol Succinate ER 25 MG Tablet Extended Release 24 Hour 1 tablet Orally Once a day 07/21/2014 Unknown Lisinopril 2.5 MG Tablet 1 tablet Orally Once a day 07/21/2014 Unknown Immunizations Vaccine Route Administration Date Status Comme nts Influenza Unknown 05/09/2020 Administered Social History Social History Additional Details Category Social Info Options Details Miscellaneous: Marital status: Occupation: human service worker-- chain assembly Section Notes: Smoker 5-10 cigs per day; no alcohol Smoker 5-10 cigs per day; no alcohol Problems Problem Type SNOMED Code ICD Code Onset Dates Problem Status W/U Status Risk Notes Problem Right upper quadrant pain (100696501) RUQ abdominal pain (R10.11) Active confirmed Plan Of Treatment Future Test Test Name Order Date UPPER GI ENDOSCOPY 07/21/2014 COLONOSCOPY 07/21/2014 Insurance Providers Payer Name Payer Address Payer Phone Subscriber Number Group Number Insured Name Patient Relationship to Insured Coverage Start Date Coverage End Date [facility] [address] [place], [place] [id number] AMIE HALEY Self - patient is the insured Medical (General) History Medical History History ICD Code Denies CVA,Lung disease,renal disease Hypertension CAD--[place] 2004--[address], and [place] in 2010--neg cath.--sees Dr. Pedroza; 2 stents [...]
--- OUTSIDE RECORDS SUMMARY | 2025-06-22 13:16 | XMS_ITS | Clinical Summary ---
Author Organization [employer] Address [address] [place] [address] Care Team Providers Care Die Designer Apprentice Name Role Phone Kenn Schaffer MD Primary Care Provider Allergies Active Allergy Reactions Criticality Noted Date Comments Bee Venom Anaphylaxis High 09/17/2023 Penicillins Swelling,Hives,Unknown Medium 06/07/2020 Medications nitroglycerin (Nitrostat) 0.[address] 0.4 mg under the tongue. 6 Active albuterol 108 (90 Base) MCG/ACT inhalerIndicatio ns:Cigarette smoker,Hyperchol esteremia,Hypert ension, unspecified type,Type 2 diabetes mellitus with other specified complication, without long-term current use of insulin ([facility]) Inhale 2 puffs every 6 (six) hours if needed for wheezing. 18 g 3 5 Active alirocumab (Praluent) 75 MG/ML injectionIndicat ions:Cigarette smoker,Hyperchol esteremia,Hypert ension, unspecified type,Type 2 diabetes mellitus with other specified complication, without long-term current use of insulin ([facility]) Inject 1 mL (75 mg) under the skin every 14 (fourteen) days. 2.24 mL 3 5 10/12/19 26 Active amLODIPine (Norvasc) 2.5 MG tabletIndication s:Cigarette smoker,Hyperchol esteremia,Hypert ension, unspecified type,Type 2 diabetes mellitus with other specified complication, without long-term current use of insulin ([facility]) Take 2 tablets (5 mg) by mouth Once per day. 60 tablet 11 5 10/12/19 26 Active ASPIRIN 81 MG chewable tabletIndication s:Cigarette smoker,Hyperchol esteremia,Hypert ension, unspecified type,Type 2 diabetes mellitus with other specified complication, without long-term current use of insulin ([facility]) Rx 81 mg po every day; 1 tablet 5 Active atorvastatin (Lipitor) 80 MG tabletIndication s:Cigarette smoker,Hyperchol esteremia,Hypert ension, unspecified type,Type 2 diabetes mellitus with other specified complication, without long-term current use of insulin ([facility]) Take 1 tablet (80 mg) by mouth Once per day. 90 tablet 3 5 Active EPINEPHrine (Epipen) 0.3 MG/0.3ML injection syringeIndicatio ns:Cigarette smoker,Hyperchol esteremia,Hypert ension, unspecified type,Type 2 diabetes mellitus with other specified complication, without long-term current use of insulin ([facility]) Inject 0.3 mL (0.3 mg) as directed 1 (one) time for 1 dose. use as directed for allergic reaction and then call 911 0.3 mL 5 Active evolocumab (Repatha) 140 MG/ML injectionIndicat ions:Cigarette smoker,Hyperchol esteremia,Hypert ension, unspecified type,Type 2 diabetes mellitus with other specified complication, without long-term current use of insulin ([facility]) Inject 1 mL (140 mg) under the skin every 14 (fourteen) days. 2.1 mL 3 5 Active ezetimibe (Zetia) 10 MG tabletIndication s:Cigarette smoker,Hyperchol esteremia,Hypert ension, unspecified type,Type 2 diabetes mellitus with other specified complication, without long-term current use of insulin ([facility]) Take 1 tablet (10 mg) by mouth Once per day. 90 tablet 3 5 Active famotidine (Pepcid) 40 MG tabletIndication s:Cigarette smoker,Hyperchol esteremia,Hypert ension, unspecified type,Type 2 diabetes mellitus with other specified complication, without long-term current use of insulin ([facility]) Take 1 tablet (40 mg) by mouth Once per day. 90 tablet 3 5 Active lisinopril 40 MG tabletIndication s:Cigarette smoker,Hyperchol esteremia,Hypert ension, unspecified type,Type 2 diabetes mellitus with other specified complication, without long-term current use of insulin (HCC) Take 1 tablet (40 mg) by mouth Once per day. 30 tablet 11 5 10/12/19 26 Active metFORMIN XR (Glucophage-XR) 750 MG 24 hr tabletIndication s:Cigarette smoker,Hyperchol esteremia,Hypert ension, unspecified type,Type 2 diabetes mellitus with other specified complication, without long-term current use of insulin (HCC) Take 1 tablet (750 mg) by mouth 2 times daily. 180 tablet 3 5 Active metoprolol succinate XL (Toprol-XL) 25 MG 24 hr tabletIndication s:Cigarette smoker,Hyperchol esteremia,Hypert ension, unspecified type,Type 2 diabetes mellitus with other specified complication, without long-term current use of insulin (HCC) Take 1 tablet (25 mg) by mouth Once per day. Do not crush or chew. 90 tablet 3 5 Active aspirin 81 MG chewable tablet Chew 1 tablet (81 mg) Once per day. 90 tablet 3 5 10/13/19 26 Active Immunizations Immunization Administration Dates Next Due Pneumococcal Conjugate PCV [...] Sign Reading Time Taken Comments Blood Pressure 137/91 10/11/2024 9:16 AM EDT Pulse 83 10/11/2024 9:16 AM EDT Temperature 36.6 C (97.8 F) 10/11/2024 9:16 AM EDT Respiratory Rate - - Oxygen Saturation 96% 10/11/2024 9:16 AM EDT Inhaled Oxygen Concentration - - Weight 101 kg (222 lb) 10/11/2024 9:16 AM EDT Height 162.6 cm (5' 4 ) 09/17/2023 2:06 PM EST Body Mass Index 38.11 09/17/2023 2:06 PM EST Plan of Treatment Health Maintenance Due Date Last Done Comments CT Colonography 1964 FIT DNA/Cologuard 1964 FIT 1964 FOBT 1964 HIV Screening 1964 Sigmoidoscopy 1964 Disability Screening 1964 Diabetes: Foot Exam 01/26/1974 Eye Exam 01/26/1974 Alcohol/Substance Use Screening 1976 Hepatitis C Screening 01/26/1982 RSV Patients and Patients Aged 60 years or older (1 - Risk 50-74 years 1-dose series) 01/26/2014 Zoster Vaccines (1 of 2) 01/26/2014 Colonoscopy 08/29/2024 08/29/2014 Colorectal Cancer Screening 08/29/2024 Depression Screening 09/17/2024 09/17/2023, 09/17/2023 SDOH Screening 09/17/2024 09/17/2023 Diabetes: Urine Protein Screening 01/30/2025 01/31/2024, 10/11/2023 DTaP/Tdap/Td Vaccines (3 - T d or Tdap) 02/01/2025 02/01/2015, 01/23/2011 COVID-19 Vaccine (4 - 2024-2 6 season) 2025 07/13/2021, 12/05/2020, 11/14/2020 Influenza Vaccine (#1) 2025 05/09/2020 Diabetes: Hemoglobin A1C 04/11/2025 025, 10/11/2023 Lipid Panel 10/09/2025 10/09/2024, 01/31/2024, 10/11/2023 Tobacco Screening 10/11/2025 10/11/2024 Pneumococcal Vaccine: 50+ Years Completed 09/17/2023, 02/03/2016 [...] Procedure Name Priority Date/Time Associated Diagnosis Comments HEMOGLOBIN A1C Routine 10/09/2024 Type 2 diabetes mellitus with other specified complication, unspecified whether terminal operations manager insulin use ([facility]) LIPID PANEL WITH REFLEX TO DIRECT LDL Routine 10/09/2024 Type 2 diabetes mellitus with other specified complication, unspecified whether fpc insulin use ([facility]) ALBUMIN, RANDOM URINE W/CREATININE Routine 01/31/2024 9:35 AM EDT Diabetes mellitus type 2 in obese HM COLONOSCOPY Routine 08/29/2014 3:13 PM EST from Last 3 Months or Most Recently Relevant to Health Maintenance Results * Lipid Panel with Reflex to Direct LDL (10/09/2024) Blood us Kenn Schaffer MD LAB BLOOD ORDERABLES Final R esult Performing Organization Address [facility] de Phone Number [address], [place] [address] * Hemoglobin A1c (10/09/2024) Blood Venous blood specimen / Unknown us Kenn Schaffer MD LAB BLOOD ORDERABLES Final R esult Performing Organization Address [facility] de Phone Number [address], [place] [address] * Albumin, Random Urine W/Creatinine (01/31/2024 9:35 AM EDT) Creatinine, Random Urine 126 20 - 320 mg/dL [email or web address] Albumin, Urine <0.2 See Note: mg/dL [email or web address] Comment: Reference Range: Reference Range Not established Albumin/Creatinin e Ratio, Random Urine NOTE <30 mg/g creat [email or web address] Comment: NOTE: The urine albumin value is less than 0.2 mg/dL therefore we are unable to calculate excretion and/or creatinine ratio. The ADA defines abnormalities in albumin excretion as follows: Albuminuria Category Result (mg/g creatinine) Normal to Mildly increased <30 Moderately increased 30-299 Severely increased > OR = 300 The ADA recommends that at least two of three specimens collected within a 3-6 month period be abnormal before considering a patient to be within a diagnostic category. Urine (Urine, Random) 01/31/2024 9:35 AM EDT 01/31/2024 9:37 AM EDT Narrative [facility] - 02/04/2024 5:43 PM EDT FASTING:YES FASTING: YES us Kenn Schaffer MD LAB URINE ORDERABLES Final R esult [facility] [address] [place] [address] [facility] [address] [place] [address] * Hm Colonoscopy (08/29/2014 3:13 PM EST) us Not In System Provider HEALTH MAINTENANCE Edited Result - Final from Last 3 Months or Most Recently Relevant to Health Maintenance Insurance PPO Care Teams Die Designer Apprentice Relationship Specialty Start Date End Date Kenn Schaffer MD [address] [place] [id number] PCP - General Internal Medicine 09/25/23
== END 2025-06-21 16:00 | disposition home or self-care (01) ==
LOC: HO.CT 15:59
PROVIDERS: PCP Internal Medicine; Visit Provider Physician Assistant Medical
DX: Z12.2 Encounter for screening for malignant neoplasm of respiratory organs (principal); Z87.891 Personal history of nicotine dependence
CPT/HCPCS: 71271

== ENCOUNTER → 2025-06-21 16:01 | Outpatient (BNV) | payer BC, SELFPAY | PROVIDERS: PCP Internal Medicine; Visit Provider Radiology Diagnostic Radiology | DX: F17.210 Nicotine dependence, cigarettes, uncomplicated (principal) | CPT/HCPCS: 71271 ==